=== PATIENT | male | born 1965 | race Caucasian/White ===

== ENCOUNTER 2019-07-01 08:43 | Emergency (ER) | payer BC ==
[2019-07-01 09:09] VITALS: BP 125/72
--- NOTE | 2019-07-01 09:21 | UC ---
Skin Complaint HPI - HPI Summary HPI Summary: Patient noticed a tick on his chest this morning. - History of Current Complaint Chief Complaint: UCSkin Time Seen by Provider: 07/01/19 09:15 Stated Complaint: TICK BITE Hx Obtained From: Patient Onset/Duration: Sudden Onset, Lasting Hours Skin Exposure Onset/Duration: Hours Ago Timing: Constant Onset Severity: Mild Current Severity: Mild Pain Intensity: 0 Location: Discrete Character: Redness Aggravating Factor(s): Nothing Alleviating Factor(s): Nothing Related History: Insect Bite/Sting - Allergy/Home Medications Allergies/Adverse Reactions: Allergies Allergy/AdvReac Type Severity Reaction Status Date / Time dog dander Allergy Eyes Verified 07/01/19 09:04 Itchy/Swollen/Red/Watery hay fever Allergy Runny Nose Uncoded 07/01/19 09:04 Home Medications: Home Medications Dm/PE/Acetaminophen/Doxylamine [Vicks Nyquil Severe Cold-Flu] 2 each PO QPM PRN 07/01/19 [History Confirmed 07/01/19] PMH/Surg Hx/FS Hx/Imm Hx Previously Healthy: Yes - Surgical History Surgical History: None - Family History Known Family History: Positive: Hypertension - Social History Alcohol Use: None Substance Use Type: None Smoking Status (MU): Never Smoked Tobacco Review of Systems All Other Systems Reviewed And Are Negative: Yes Skin: Positive: Other - tick bite Is Patient Immunocompromised?: No - is worried becasue he found out 3 days ago he has a low WBS count Physical Exam Triage Information Reviewed: Yes Appearance: Well-Appearing, Well-Nourished, Pain Distress Vital Signs: Initial Vital Signs Temp 98.4 F 07/01/19 09:06 Pulse 89 07/01/19 09:06 Resp 20 07/01/19 09:06 BP 125/72 07/01/19 09:06 Pulse Ox 97 07/01/19 09:06 Vital Signs Reviewed: Yes Eye Exam: Normal ENT Exam: Normal Dental Exam: Normal Neck exam: Normal Respiratory Exam: Normal Cardiovascular Exam: Normal Abdominal Exam: Normal Bowel Sounds: Positive: Present Musculoskeletal Exam: Normal Neurological Exam: Normal Psychological Exam: Normal Skin: Positive: Other - mild erythema were tick was removed Course/Dx - Course Course Of Treatment: hx obtained, exam performed, meds reviewed, given does of doxycyline. no further treatment - Differential Diagnoses - Skin Complaint Differential Diagnoses: Tick Born Illness - Diagnoses Provider Diagnosis: Tick bite Discharge ED - Sign-Out/Discharge Documenting (check all that apply): Patient Departure All imaging exams completed and their final reports reviewed: No Studies - Discharge Plan Condition: Stable Disposition: HOME Prescriptions: DOXYcycline CAP(*) [DOXYcycline 100MG CAP(*)] 200 mg PO ONCE #2 cap Patient Education Materials: Tick Bite (ED) Referrals: Nisa Calderón NP [Primary Care Provider] - Additional Instructions: 1. take the moedication with your next meal. 2. Follow up with your PCP - Billing Disposition and Condition Condition: STABLE Disposition: Home - Attestation Statements Provider Attestation: I was available for consult. This patient was seen by the JASEN. The patient was not presented to , seen by or examined by de -Gladis Layton MD
== END 2019-07-01 09:25 | disposition home or self-care (01) ==
LOC: UCCORT 08:43
DX: S20.369A Insect bite (nonvenomous) of unspecified front wall of thorax, initial encounter (principal); Z91.09 Other allergy status, other than to drugs and biological substances; W57.XXXA Bitten or stung by nonvenomous insect and other nonvenomous arthropods, initial encounter; Y92.9 Unspecified place or not applicable
CPT/HCPCS: 99202; G0463

== ENCOUNTER 2021-11-12 10:03 | Inpatient (IN) ==
[2021-11-12] MEDS ORDERED: NS 0.9% 1000 ml BAG 1,000 ML IV ONE (11:37)
[2021-11-12 12:58] LABS: Hematocrit 23 % (42-52); Hemoglobin 7.7 g/dL (14.0-18.0); Mean Corpuscular HGB Conc 33 g/dL (31-36); Mean Corpuscular Hemoglobin 35 pg (27-31); Mean Corpuscular Volume 104 fL (80-94); Red Blood Count 2.22 10^6 /uL (4.18-5.48); Red Cell Distribution Width 16 % (10-15); White Blood Count 5.2 10^3/uL (3.5-10.8)
[2021-11-12 13:02] LABS: Activated Partial Thrombo Time 31.6 seconds (26.0-38.0); INR 1.39 (0.86-1.15)
[2021-11-12 13:12] LABS: ALT 41 U/L (7-52); AST 29 U/L (13-39); Albumin 3.3 g/dL (3.2-5.2); Albumin/Globulin Ratio 1.7 (1-3); Alkaline Phosphatase 75 U/L (35-149); Anion Gap 8 mmol/L (2-11); Blood Urea Nitrogen 64 mg/dL (6-24); CO2 Carbon Dioxide 21 mmol/L (22-32); Chloride 109 mmol/L (101-111); Glucose 149 mg/dL (70-100); Sodium 138 mmol/L (135-145); Total Protein 5.3 g/dL (6.4-8.9); eGFR CKD-EPI 26.2 (>60)
[2021-11-12 13:20] LABS: Mean Platelet Volume 7.9 fL (7.4-10.4); Platelet Count 86 10^3/uL (150-450)
[2021-11-12 13:23] LABS: ABS Basophils 0.1 10^3/ul (0-0.2); ABS Lymphocytes 0.2 10^3/ul (1.0-4.8); ABS Monocytes 0.7 10^3/ul (0-0.8); ABS Neutrophils 4.3 10^3/ul (1.5-7.7); Anisocytosis 1+; Eosinophil % 0.3 %; Lymphocyte % 3.7 %; Troponin I 0.04 ng/mL (<0.03)
[2021-11-12] MEDS ORDERED: Piperacillin/Tazobactam VIAL 3.375 GM in NS 0.9% 100 ml BAG 100 ML IVPB ONE (13:35)
[2021-11-12] MEDS ORDERED: NS 0.9% 100 ml BAG 100 ML ONE (14:24)
[2021-11-12 15:58] LABS: Urine Appearance Clear; Urine Bilirubin Negative (Negative); Urine Blood 1+ (Negative); Urine Color Yellow; Urine Glucose Negative (Negative); Urine Ketones Negative (Negative); Urine Nitrite Negative (Negative); Urine Protein 2+(100 mg/dL) (Negative); Urine Specific Gravity 1.012 (1.002-1.030); Urine Urobilinogen Negative (Negative)
[2021-11-12 16:02] LABS: Urine Bacteria Absent (Absent); Urine Red Blood Cell Trace(0-2/hpf) (Absent); Urine White Blood Cell Trace(0-5/hpf) (Absent)
[2021-11-12] MEDS ORDERED: Butalb/Acetamin/Caff TAB 325-50-40MG PO PRN (17:30)
[2021-11-12] MEDS ORDERED: NS 0.9% 1000 ml BAG 1,000 ML IV SCH (17:30)
[2021-11-12] MEDS ORDERED: Hydrocortisone INJ 100 MG/2ML 2 ML VIAL IM SCH (18:00)
[2021-11-12] MEDS ORDERED: diPHENhydraMINE 25 mg TAB PO PRN (21:00)
[2021-11-12] MEDS ORDERED: cefTRIAXone VIAL 1,000 MG in NS 0.9% 50 ML 50 ML IVPB SCH (21:00)
[2021-11-12] MEDS: ISAVUCONAZONIUM 186 MG PO SCH (21:57)
[2021-11-12] MEDS: Azithromycin 500 mg/250 ml NS 500 MG/250 ML BAG IVPB SCH (22:39)
[2021-11-12] MEDS: Enoxaparin 80 MG/0.8 ML SYR SUBCUT SCH (22:39)
[2021-11-12] MEDS: Sodium Bicarb 650 mg (ANTACID) TAB PO SCH (22:41)
[2021-11-12] MEDS: Hydrocortisone INJ 100 MG/2ML 2 ML VIAL IM SCH (22:43)
[2021-11-12] MEDS ORDERED: BECLOMETHASONE PO SCH (23:00)
[2021-11-12] MEDS: Mometasone 220 MCG MDI INH SCH (23:17)
[2021-11-12] MEDS ORDERED: Ondansetron 4 mg VIAL 2 MG/ML 2 ml VIAL IV PRN (23:45)
[2021-11-13 05:00] LABS: ABS Lymphocytes 0.2 10^3/ul (1.0-4.8); ABS Monocytes 0.5 10^3/ul (0-0.8); ABS Neutrophils 3.9 10^3/ul (1.5-7.7); Eosinophil % 0.4 %; Hematocrit 21 % (42-52); Hemoglobin 6.9 g/dL (14.0-18.0); Lymphocyte % 3.6 %; Mean Corpuscular HGB Conc 33 g/dL (31-36); Mean Corpuscular Hemoglobin 35 pg (27-31); Mean Corpuscular Volume 104 fL (80-94); Mean Platelet Volume 7.9 fL (7.4-10.4); Platelet Count 65 10^3/uL (150-450); Red Blood Count 1.99 10^6 /uL (4.18-5.48); Red Cell Distribution Width 16 % (10-15); White Blood Count 4.6 10^3/uL (3.5-10.8)
[2021-11-13 05:08] LABS: Albumin 2.9 g/dL (3.2-5.2); Albumin/Globulin Ratio 1.5 (1-3); Calcium 8.5 mg/dL (8.6-10.3); Globulin 1.9 g/dL (2-4); Total Bilirubin 0.4 mg/dL (0.2-1.0); Total Protein 4.8 g/dL (6.4-8.9); eGFR CKD-EPI 24.5 (>60)
[2021-11-13 05:12] LABS: Potassium 5.1 mmol/L (3.5-5.0)
[2021-11-13] MEDS ORDERED: Furosemide 20 mg/2 ml IV VIAL IV ONE (06:00)
[2021-11-13] MEDS: Hydrocortisone INJ 100 MG/2ML 2 ML VIAL IM SCH (06:20)
[2021-11-13] MEDS: SPIRIVA Respimat (tiotropium) 2.5 mcg/inh Inhaler INH SCH (07:59)
[2021-11-13] MEDS: Cholecalciferol (VIT D3) 1,000 unit TAB PO SCH (09:00)
[2021-11-13] MEDS: Sodium Bicarb 650 mg (ANTACID) TAB PO SCH ×3 (09:02→21:35)
[2021-11-13] MEDS ORDERED: Dextrose 50% Syringe 50 ml 25 GM/50 ML SYRINGE IV PUSH PRN (09:58)
[2021-11-13] MEDS: [UNRECOGNIZED DRUG - OTHER] PO SCH (10:01)
[2021-11-13] MEDS: methylPREDNISolone SOD 40 mg/ml 1 ml VIAL IV SCH ×2 (10:01→21:37)
[2021-11-13] MEDS: Piperacillin/Tazobac ADVAN 3.375 GM in NS 0.9% 100 ml BAG 100 ML IV SCH ×2 (11:21→18:06)
[2021-11-13] MEDS: Warfarin DAILY REMINDER **NOTE FOLLOW UP SCH (16:38)
[2021-11-13] MEDS: Mometasone 220 MCG MDI INH SCH (19:36)
[2021-11-13] MEDS: Enoxaparin 80 MG/0.8 ML SYR SUBCUT SCH (21:40)
[2021-11-13] MEDS: ISAVUCONAZONIUM 186 MG PO SCH (21:40)
[2021-11-13] MEDS: Azithromycin 500 mg/250 ml NS 500 MG/250 ML BAG IVPB SCH (22:32)
[2021-11-14] MEDS: Piperacillin/Tazobac ADVAN 3.375 GM in NS 0.9% 100 ml BAG 100 ML IV SCH ×3 (03:36→18:01)
[2021-11-14 07:00] LABS: Albumin 3.1 g/dL (3.2-5.2); Albumin/Globulin Ratio 1.3 (1-3); Globulin 2.3 g/dL (2-4); INR 1.44 (0.86-1.15); Total Bilirubin 0.4 mg/dL (0.2-1.0); Total Protein 5.4 g/dL (6.4-8.9)
[2021-11-14 07:02] LABS: Potassium 5.5 mmol/L (3.5-5.0)
[2021-11-14 07:17] LABS: Hematocrit 20 % (42-52); Hemoglobin 6.8 g/dL (14.0-18.0); Mean Corpuscular HGB Conc 34 g/dL (31-36); Mean Corpuscular Hemoglobin 35 pg (27-31); Mean Corpuscular Volume 104 fL (80-94); Mean Platelet Volume 8.4 fL (7.4-10.4); Platelet Count 73 10^3/uL (150-450); Red Blood Count 1.95 10^6 /uL (4.18-5.48); Red Cell Distribution Width 16 % (10-15); White Blood Count 5.1 10^3/uL (3.5-10.8)
[2021-11-14 08:10] LABS: ABS Lymphocytes 0.1 10^3/ul (1.0-4.8); ABS Monocytes 0.3 10^3/ul (0-0.8); ABS Neutrophils 4.7 10^3/ul (1.5-7.7); Lymphocyte % 1.4 %
[2021-11-14] MEDS: Sodium Bicarb 650 mg (ANTACID) TAB PO SCH ×3 (08:40→20:55)
[2021-11-14] MEDS: Cholecalciferol (VIT D3) 1,000 unit TAB PO SCH (08:41)
[2021-11-14] MEDS: SPIRIVA Respimat (tiotropium) 2.5 mcg/inh Inhaler INH SCH (08:58)
[2021-11-14] MEDS: methylPREDNISolone SOD 40 mg/ml 1 ml VIAL IV SCH ×2 (10:17→21:03)
[2021-11-14] MEDS: [UNRECOGNIZED DRUG - OTHER] PO SCH (10:59)
[2021-11-14] MEDS ORDERED: NS 0.9% 1000 ml BAG 1,000 ML IV SCH (13:30)
[2021-11-14] MEDS: NS 0.9% 1000 ml BAG 1,000 ML IV SCH (16:54)
[2021-11-14] MEDS: Warfarin DAILY REMINDER **NOTE FOLLOW UP SCH (16:59)
[2021-11-14] MEDS: [UNRECOGNIZED DRUG - OTHER] PO SCH (17:59)
[2021-11-14] MEDS: BECLOMETHASONE PO SCH ×2 (18:00→20:56)
[2021-11-14] MEDS: PROTEIN PO SCH ×2 (18:00→20:57)
[2021-11-14] MEDS: Mometasone 220 MCG MDI INH SCH (19:17)
[2021-11-14] MEDS: Enoxaparin 80 MG/0.8 ML SYR SUBCUT SCH (20:56)
[2021-11-14] MEDS: ISAVUCONAZONIUM 186 MG PO SCH (20:57)
[2021-11-14] MEDS: Azithromycin 500 mg/250 ml NS 500 MG/250 ML BAG IVPB SCH (22:57)
[2021-11-15] MEDS: Piperacillin/Tazobac ADVAN 3.375 GM in NS 0.9% 100 ml BAG 100 ML IV SCH ×3 (02:32→17:03)
[2021-11-15] MEDS: NS 0.9% 1000 ml BAG 1,000 ML IV SCH (05:49)
[2021-11-15 06:47] LABS: ABS Lymphocytes 0.1 10^3/ul (1.0-4.8); ABS Monocytes 0.2 10^3/ul (0-0.8); ABS Neutrophils 3.9 10^3/ul (1.5-7.7); Eosinophil % 0.1 %; Hematocrit 20 % (42-52); Hemoglobin 6.7 g/dL (14.0-18.0); Lymphocyte % 1.7 %; Mean Corpuscular HGB Conc 34 g/dL (31-36); Mean Corpuscular Hemoglobin 35 pg (27-31); Mean Corpuscular Volume 104 fL (80-94); Mean Platelet Volume 8.1 fL (7.4-10.4); Nucleated Red Blood Cells % 0.1; Platelet Count 72 10^3/uL (150-450); Red Blood Count 1.91 10^6 /uL (4.18-5.48); Red Cell Distribution Width 16 % (10-15); White Blood Count 4.2 10^3/uL (3.5-10.8)
[2021-11-15 06:48] LABS: Albumin/Globulin Ratio 1.4 (1-3); Calcium 8.4 mg/dL (8.6-10.3); Globulin 2.1 g/dL (2-4); Total Bilirubin 0.4 mg/dL (0.2-1.0); Total Protein 5.1 g/dL (6.4-8.9)
[2021-11-15 06:49] LABS: Potassium 5.3 mmol/L (3.5-5.0)
[2021-11-15 07:01] LABS: INR 1.62 (0.86-1.15)
[2021-11-15] MEDS: SPIRIVA Respimat (tiotropium) 2.5 mcg/inh Inhaler INH SCH (08:03)
[2021-11-15] MEDS: Cholecalciferol (VIT D3) 1,000 unit TAB PO SCH (08:43)
[2021-11-15] MEDS: Sodium Bicarb 650 mg (ANTACID) TAB PO SCH ×3 (08:43→21:28)
[2021-11-15] MEDS: BECLOMETHASONE PO SCH ×4 (08:45→21:46)
[2021-11-15] MEDS: [UNRECOGNIZED DRUG - OTHER] PO SCH (08:45)
[2021-11-15] MEDS: PROTEIN PO SCH ×4 (08:45→21:47)
[2021-11-15] MEDS: methylPREDNISolone SOD 40 mg/ml 1 ml VIAL IV SCH (10:28)
[2021-11-15] MEDS: Warfarin DAILY REMINDER **NOTE FOLLOW UP SCH (17:30)
[2021-11-15] MEDS: Mometasone 220 MCG MDI INH SCH (19:49)
[2021-11-15] MEDS: Enoxaparin 80 MG/0.8 ML SYR SUBCUT SCH (21:28)
[2021-11-15] MEDS: ISAVUCONAZONIUM 186 MG PO SCH (21:46)
[2021-11-15] MEDS ORDERED: methylPREDNISolone SOD 40 mg/ml 1 ml VIAL IV SCH (22:00)
[2021-11-15] MEDS: Azithromycin 500 mg/250 ml NS 500 MG/250 ML BAG IVPB SCH (22:11)
[2021-11-16] MEDS: Piperacillin/Tazobac ADVAN 3.375 GM in NS 0.9% 100 ml BAG 100 ML IV SCH ×3 (01:52→18:11)
[2021-11-16 06:04] LABS: Hematocrit 20 % (42-52); Hemoglobin 6.8 g/dL (14.0-18.0); INR 2.6 (0.86-1.15); Mean Corpuscular HGB Conc 34 g/dL (31-36); Mean Corpuscular Hemoglobin 35 pg (27-31); Mean Corpuscular Volume 104 fL (80-94); Platelet Count 80 10^3/uL (150-450); Red Blood Count 1.95 10^6 /uL (4.18-5.48); Red Cell Distribution Width 16 % (10-15); White Blood Count 4.2 10^3/uL (3.5-10.8)
[2021-11-16 06:15] LABS: Albumin 3.1 g/dL (3.2-5.2); Albumin/Globulin Ratio 1.5 (1-3); Calcium 8.3 mg/dL (8.6-10.3); Globulin 2.1 g/dL (2-4); Total Bilirubin 0.4 mg/dL (0.2-1.0); Total Protein 5.2 g/dL (6.4-8.9); eGFR CKD-EPI 16.7 (>60)
[2021-11-16 06:16] LABS: Potassium 5.2 mmol/L (3.5-5.0)
[2021-11-16 06:49] LABS: RBC Morphology Normal (Normal)
[2021-11-16 07:28] LABS: ABS Lymphocytes 0.1 10^3/ul (1.0-4.8); ABS Monocytes 0.3 10^3/ul (0-0.8); ABS Neutrophils 3.9 10^3/ul (1.5-7.7); Lymphocyte % 1.7 %; Nucleated Red Blood Cells % 0.3
[2021-11-16] MEDS: SPIRIVA Respimat (tiotropium) 2.5 mcg/inh Inhaler INH SCH (07:54)
[2021-11-16] MEDS: Sodium Bicarb 650 mg (ANTACID) TAB PO SCH ×3 (09:25→21:01)
[2021-11-16] MEDS: [UNRECOGNIZED DRUG - OTHER] PO SCH (09:26)
[2021-11-16] MEDS: Cholecalciferol (VIT D3) 1,000 unit TAB PO SCH (09:26)
[2021-11-16] MEDS: PROTEIN PO SCH ×4 (09:28→21:11)
[2021-11-16] MEDS: BECLOMETHASONE PO SCH ×4 (09:28→21:10)
[2021-11-16 11:11] LABS: Immunoglobulin A 3 mg/dL (61 - 356); Immunoglobulin G 22 mg/dL (767 - 1590); Immunoglobulin M <5 mg/dL (37 - 286)
[2021-11-16] MEDS: Warfarin DAILY REMINDER **NOTE FOLLOW UP SCH (18:15)
[2021-11-16] MEDS: Mometasone 220 MCG MDI INH SCH (19:36)
[2021-11-16] MEDS: ISAVUCONAZONIUM 186 MG PO SCH (21:11)
[2021-11-16] MEDS: Azithromycin 500 mg/250 ml NS 500 MG/250 ML BAG IVPB SCH (22:20)
[2021-11-17] MEDS: Piperacillin/Tazobac ADVAN 3.375 GM in NS 0.9% 100 ml BAG 100 ML IV SCH (01:43)
[2021-11-17 04:54] LABS: Hematocrit 21 % (42-52); INR 3.28 (0.86-1.15); Mean Corpuscular HGB Conc 33 g/dL (31-36); Mean Corpuscular Hemoglobin 34 pg (27-31); Mean Corpuscular Volume 104 fL (80-94); Mean Platelet Volume 7.3 fL (7.4-10.4); Platelet Count 86 10^3/uL (150-450); Red Blood Count 2.04 10^6 /uL (4.18-5.48); Red Cell Distribution Width 16 % (10-15); White Blood Count 3.3 10^3/uL (3.5-10.8)
[2021-11-17 05:05] LABS: Albumin 3.1 g/dL (3.2-5.2); Albumin/Globulin Ratio 1.6 (1-3); Calcium 8.3 mg/dL (8.6-10.3); Globulin 1.9 g/dL (2-4); Potassium 4.8 mmol/L (3.5-5.0); Total Bilirubin 0.4 mg/dL (0.2-1.0); eGFR CKD-EPI 20.2 (>60)
[2021-11-17 05:13] LABS: ABS Lymphocytes 0.1 10^3/ul (1.0-4.8); ABS Monocytes 0.4 10^3/ul (0-0.8); ABS Neutrophils 2.7 10^3/ul (1.5-7.7); Eosinophil % 1.4 %; Nucleated Red Blood Cells % 0.5
[2021-11-17 07:41] VITALS: BP 147/79
[2021-11-17] MEDS: SPIRIVA Respimat (tiotropium) 2.5 mcg/inh Inhaler INH SCH (07:48)
[2021-11-17] MEDS: Cholecalciferol (VIT D3) 1,000 unit TAB PO SCH (08:54)
[2021-11-17] MEDS: Sodium Bicarb 650 mg (ANTACID) TAB PO SCH (08:58)
[2021-11-17] MEDS: PROTEIN PO SCH (09:04)
[2021-11-17] MEDS: [UNRECOGNIZED DRUG - OTHER] PO SCH (09:04)
[2021-11-17] MEDS: BECLOMETHASONE PO SCH (09:04)
== END 2021-11-17 11:25 | disposition home or self-care (01) | DRG 720 ==
LOC: ED 10:03 → EDHOLD 17:42 → MED 19:56
PROVIDERS: ADMIT Internal Medicine Medical Oncology; ATTEND Internal Medicine Medical Oncology

== ENCOUNTER 2022-02-12 05:04 | Inpatient (IN) ==
[2022-02-12] MEDS ORDERED: Azithromycin 500 mg/250 ml NS 500 MG/250 ML BAG IVPB ONE (07:20)
[2022-02-12] MEDS ORDERED: Cefepime 2 GM in Dextrose 2 GM/50 ML BAG IV ONE (07:20)
[2022-02-12] MEDS ORDERED: Lactated Ringers 1000 ml BAG 1,000 ML IV ONE (07:21)
[2022-02-12 07:55] LABS: ABS Lymphocytes 0.3 10^3/ul (1.0-4.8); ABS Monocytes 0.5 10^3/ul (0-0.8); ABS Neutrophils 2.7 10^3/ul (1.5-7.7); Eosinophil % 0.4 %; Hematocrit 22 % (42-52); Hemoglobin 7.3 g/dL (14.0-18.0); Mean Corpuscular HGB Conc 34 g/dL (31-36); Mean Corpuscular Hemoglobin 35 pg (27-31); Mean Corpuscular Volume 103 fL (80-94); Mean Platelet Volume 7.2 fL (7.4-10.4); Nucleated Red Blood Cells % 0.1; Platelet Count 69 10^3/uL (150-450); Red Cell Distribution Width 18 % (10-15); White Blood Count 3.6 10^3/uL (3.5-10.8)
[2022-02-12] MEDS ORDERED: Lactated Ringers 1000 ml BAG 1,000 ML IV SCH (08:00)
[2022-02-12 08:11] LABS: Albumin 3.1 g/dL (3.2-5.2); Albumin/Globulin Ratio 2.2 (1-3); C Reactive Protein 82.86 mg/L (<8.01); Calcium 8.4 mg/dL (8.6-10.3); Globulin 1.4 g/dL (2-4); Total Bilirubin 0.5 mg/dL (0.2-1.0); Total Protein 4.5 g/dL (6.4-8.9); eGFR CKD-EPI 23.4 (>60)
[2022-02-12 08:12] LABS: Potassium 5.3 mmol/L (3.5-5.0)
[2022-02-12] MEDS ORDERED: NS 0.9% 1000 ml BAG 1,000 ML IV SCH ×2 (09:30→10:00)
[2022-02-12] MEDS ORDERED: Ondansetron ODT 4 mg TAB 4 MG TAB PO PRN (09:34)
[2022-02-12] MEDS ORDERED: Rizatriptan ODT 10 mg TAB (NF) PO PRN (09:34)
[2022-02-12] MEDS: [UNRECOGNIZED DRUG - OTHER] PO SCH (12:03)
[2022-02-12] MEDS: ISAVUCONAZONIUM SULFATE 186 MG PO SCH (12:04)
[2022-02-12] MEDS: Cholecalciferol (VIT D3) 1,000 unit TAB PO SCH (12:07)
[2022-02-12] MEDS: Hydrocortisone INJ 100 MG/2ML 2 ML VIAL IV SCH ×2 (12:08→18:27)
[2022-02-12] MEDS: Labetalol 300 mg TAB PO SCH ×3 (12:08→18:44)
[2022-02-12] MEDS: SPIRIVA Respimat (tiotropium) 2.5 mcg/inh Inhaler INH SCH (12:09)
[2022-02-12] MEDS ORDERED: Furosemide 20 mg/2 ml IV VIAL IV SLOW PU ONE (12:23)
[2022-02-12] MEDS ORDERED: Vancomycin 1,000 MG in NS 0.9% 250 ml 250 ML IVPB ONE (13:31)
[2022-02-12] MEDS ORDERED: Vancomycin 1,500 MG in NS 0.9% 250 ml 250 ML IVPB ONE (14:00)
[2022-02-12] MEDS ORDERED: Zosyn per Pharmacy NOTE FOLLOW UP SCH (14:00)
[2022-02-12] MEDS ORDERED: Piperacillin/Tazobac ADVAN 3.375 GM in NS 0.9% 100 ml BAG 100 ML IV ONE (14:00)
[2022-02-12] MEDS ORDERED: Vancomycin per Pharmacy 1 EA NOTE FOLLOW UP SCH (14:00)
[2022-02-12] MEDS ORDERED: cefTRIAXone 1 gm/50 mL D5W 1 GM/50 ML BAG IV SCH (14:00)
[2022-02-12 14:59] LABS: Urine Appearance Clear; Urine Bilirubin Negative (Negative); Urine Blood 1+ (Negative); Urine Color Straw; Urine Glucose Negative (Negative); Urine Ketones Negative (Negative); Urine Nitrite Negative (Negative); Urine Protein 1+(30 mg/dL) (Negative); Urine Urobilinogen Negative (Negative)
[2022-02-12 15:40] LABS: Urine Bacteria Absent (Absent); Urine Red Blood Cell Trace(0-2/hpf) (Absent); Urine White Blood Cell Trace(0-5/hpf) (Absent)
[2022-02-12] MEDS ORDERED: Norepinephrine 16MCG/ML BAGD5W 4,000 MCG/250 ML BAG IV ONE (16:12)
[2022-02-12] MEDS: ZOSYN 3.375 GM Q8H per EXTENDED INFUSION IV SCH (18:27)
[2022-02-12] MEDS: Mometasone 220 MCG MDI INH SCH (19:54)
[2022-02-12 22:45] LABS: Calcium 7.9 mg/dL (8.6-10.3); Magnesium 1.9 mg/dL (1.9-2.7); Potassium 5.6 mmol/L (3.5-5.0)
[2022-02-12 22:50] LABS: Phosphorus 3.6 mg/dL (2.5-5.0); eGFR CKD-EPI 21.6 (>60)
[2022-02-12] MEDS: SODIUM ZIRCONIUM CYCLOSILICATE 10 GM PACKET PO SCH (23:05)
[2022-02-12] MEDS ORDERED: Dextrose 50% Syringe 50 ml 25 GM/50 ML SYRINGE IV PUSH ONE (23:14)
[2022-02-12] MEDS ORDERED: Acetaminophen IV 1 GM/100ML 100 ML IV ONE (23:15)
[2022-02-13] MEDS: Hydrocortisone INJ 100 MG/2ML 2 ML VIAL IV SCH ×3 (01:58→18:05)
[2022-02-13] MEDS: Labetalol 300 mg TAB PO SCH ×3 (01:59→18:06)
[2022-02-13] MEDS: ZOSYN 3.375 GM Q8H per EXTENDED INFUSION IV SCH ×3 (01:59→18:05)
[2022-02-13 04:22] LABS: ABS Neutrophils 3.7 10^3/ul (1.5-7.7); Eosinophil % 1.2 %; Hematocrit 21 % (42-52); Hemoglobin 7.1 g/dL (14.0-18.0); Lymphocyte % 1.1 %; Mean Corpuscular HGB Conc 33 g/dL (31-36); Mean Corpuscular Hemoglobin 34 pg (27-31); Mean Corpuscular Volume 103 fL (80-94); Mean Platelet Volume 7.1 fL (7.4-10.4); Nucleated Red Blood Cells % 0.1; Platelet Count 59 10^3/uL (150-450); Red Blood Count 2.07 10^6 /uL (4.18-5.48); Red Cell Distribution Width 18 % (10-15); White Blood Count 3.8 10^3/uL (3.5-10.8)
[2022-02-13 04:44] LABS: Calcium 7.9 mg/dL (8.6-10.3); eGFR CKD-EPI 20.7 (>60)
[2022-02-13] MEDS ORDERED: Vancomycin Random Level NOTE FOLLOW UP ONE (06:00)
[2022-02-13] MEDS: SPIRIVA Respimat (tiotropium) 2.5 mcg/inh Inhaler INH SCH (07:58)
[2022-02-13] MEDS: [UNRECOGNIZED DRUG - OTHER] PO SCH (08:48)
[2022-02-13] MEDS: Cholecalciferol (VIT D3) 1,000 unit TAB PO SCH (08:48)
[2022-02-13] MEDS: ISAVUCONAZONIUM SULFATE 186 MG PO SCH (08:51)
[2022-02-13] MEDS ORDERED: Vancomycin 1,250 MG in NS 0.9% 250 ml 250 ML IVPB ONE (10:00)
[2022-02-13] MEDS: SODIUM ZIRCONIUM CYCLOSILICATE 10 GM PACKET PO SCH ×4 (11:10→20:30)
[2022-02-13] MEDS: Mometasone 220 MCG MDI INH SCH (21:21)
[2022-02-14] MEDS: ZOSYN 3.375 GM Q8H per EXTENDED INFUSION IV SCH ×3 (02:05→18:37)
[2022-02-14] MEDS: Labetalol 300 mg TAB PO SCH ×3 (02:06→18:29)
[2022-02-14] MEDS: Hydrocortisone INJ 100 MG/2ML 2 ML VIAL IV SCH ×2 (02:08→08:48)
[2022-02-14 05:45] LABS: Hematocrit 20 % (42-52); Hemoglobin 6.5 g/dL (14.0-18.0); Mean Corpuscular HGB Conc 33 g/dL (31-36); Mean Corpuscular Hemoglobin 34 pg (27-31); Mean Corpuscular Volume 103 fL (80-94); Mean Platelet Volume 7.7 fL (7.4-10.4); Platelet Count 65 10^3/uL (150-450); Red Blood Count 1.92 10^6 /uL (4.18-5.48); Red Cell Distribution Width 17 % (10-15); White Blood Count 3.1 10^3/uL (3.5-10.8)
[2022-02-14] MEDS ORDERED: Vancomycin Random Level NOTE FOLLOW UP ONE (06:00)
[2022-02-14 06:10] LABS: Vancomycin Random 18.1 mcg/mL; eGFR CKD-EPI 19.4 (>60)
[2022-02-14 06:19] LABS: ABS Monocytes 0.1 10^3/ul (0-0.8); ABS Neutrophils 2.9 10^3/ul (1.5-7.7); Eosinophil % 1.2 %; Lymphocyte % 1.6 %
[2022-02-14 06:26] LABS: Calcium 7.9 mg/dL (8.6-10.3)
[2022-02-14] MEDS: SODIUM ZIRCONIUM CYCLOSILICATE 10 GM PACKET PO SCH ×2 (07:36→13:44)
[2022-02-14] MEDS: ISAVUCONAZONIUM SULFATE 186 MG PO SCH (08:47)
[2022-02-14] MEDS: Cholecalciferol (VIT D3) 1,000 unit TAB PO SCH (08:47)
[2022-02-14] MEDS: [UNRECOGNIZED DRUG - OTHER] PO SCH (08:48)
[2022-02-14] MEDS ORDERED: Bumetanide IV 0.25 MG/ML 4 ml VIAL (1 mg) SLOW PUSH ONE (09:11)
[2022-02-14] MEDS: SPIRIVA Respimat (tiotropium) 2.5 mcg/inh Inhaler INH SCH (18:34)
[2022-02-14] MEDS: Mometasone 220 MCG MDI INH SCH (18:38)
[2022-02-15] MEDS: Labetalol 300 mg TAB PO SCH ×3 (01:32→17:37)
[2022-02-15] MEDS: ZOSYN 3.375 GM Q8H per EXTENDED INFUSION IV SCH (01:32)
[2022-02-15 06:05] LABS: Hematocrit 25 % (42-52); Hemoglobin 8.3 g/dL (14.0-18.0); Mean Corpuscular HGB Conc 33 g/dL (31-36); Mean Corpuscular Hemoglobin 33 pg (27-31); Mean Corpuscular Volume 97 fL (80-94); Mean Platelet Volume 7.6 fL (7.4-10.4); Platelet Count 71 10^3/uL (150-450); Red Blood Count 2.57 10^6 /uL (4.18-5.48); Red Cell Distribution Width 19 % (10-15); White Blood Count 3.1 10^3/uL (3.5-10.8)
[2022-02-15 06:29] LABS: Calcium 7.9 mg/dL (8.6-10.3); Potassium 3.6 mmol/L (3.5-5.0); eGFR CKD-EPI 18.4 (>60)
[2022-02-15 06:31] LABS: ABS Lymphocytes 0.1 10^3/ul (1.0-4.8); ABS Monocytes 0.1 10^3/ul (0-0.8); ABS Neutrophils 2.9 10^3/ul (1.5-7.7); Eosinophil % 0.4 %; Lymphocyte % 2.4 %
[2022-02-15] MEDS: [UNRECOGNIZED DRUG - OTHER] PO SCH (07:28)
[2022-02-15] MEDS: Cholecalciferol (VIT D3) 1,000 unit TAB PO SCH (07:32)
[2022-02-15] MEDS: SPIRIVA Respimat (tiotropium) 2.5 mcg/inh Inhaler INH SCH (08:24)
[2022-02-15] MEDS: ZOSYN 3.375 GM Q12H per EXTENDED INFUSION IV SCH (14:29)
[2022-02-15] MEDS: ISAVUCONAZONIUM SULFATE 186 MG PO SCH (17:37)
[2022-02-15] MEDS ORDERED: ORENCIA 125 MG/ML SUBCUT ONE (20:00)
[2022-02-15] MEDS: Mometasone 220 MCG MDI INH SCH (21:32)
[2022-02-16] MEDS: Labetalol 300 mg TAB PO SCH ×3 (02:39→18:10)
[2022-02-16] MEDS: ZOSYN 3.375 GM Q12H per EXTENDED INFUSION IV SCH ×2 (02:40→13:37)
[2022-02-16 08:16] LABS: ABS Eosinophils 0.1 10^3/ul (0-0.6); ABS Lymphocytes 0.1 10^3/ul (1.0-4.8); ABS Monocytes 0.4 10^3/ul (0-0.8); Hematocrit 24 % (42-52); Hemoglobin 7.9 g/dL (14.0-18.0); Lymphocyte % 4.9 %; Mean Corpuscular HGB Conc 34 g/dL (31-36); Mean Corpuscular Hemoglobin 33 pg (27-31); Mean Corpuscular Volume 99 fL (80-94); Mean Platelet Volume 7.2 fL (7.4-10.4); Nucleated Red Blood Cells % 0.2; Platelet Count 70 10^3/uL (150-450); Red Blood Count 2.37 10^6 /uL (4.18-5.48); Red Cell Distribution Width 19 % (10-15); White Blood Count 2.7 10^3/uL (3.5-10.8)
[2022-02-16] MEDS: SPIRIVA Respimat (tiotropium) 2.5 mcg/inh Inhaler INH SCH (08:36)
[2022-02-16 08:54] LABS: Albumin 3.1 g/dL (3.2-5.2); Albumin/Globulin Ratio 2.2 (1-3); Calcium 8.1 mg/dL (8.6-10.3); Globulin 1.4 g/dL (2-4); Potassium 3.5 mmol/L (3.5-5.0); Total Bilirubin 0.6 mg/dL (0.2-1.0); Total Protein 4.5 g/dL (6.4-8.9); eGFR CKD-EPI 19.7 (>60)
[2022-02-16 08:59] LABS: RBC Morphology Normal (Normal)
[2022-02-16] MEDS: [UNRECOGNIZED DRUG - OTHER] PO SCH (09:03)
[2022-02-16] MEDS: ISAVUCONAZONIUM SULFATE 186 MG PO SCH (09:13)
[2022-02-16] MEDS: Cholecalciferol (VIT D3) 1,000 unit TAB PO SCH (09:21)
[2022-02-16] MEDS: Mometasone 220 MCG MDI INH SCH ×2 (21:23→21:40)
[2022-02-17] MEDS: Labetalol 300 mg TAB PO SCH ×2 (01:51→08:45)
[2022-02-17] MEDS: ZOSYN 3.375 GM Q12H per EXTENDED INFUSION IV SCH (01:52)
[2022-02-17] MEDS: SPIRIVA Respimat (tiotropium) 2.5 mcg/inh Inhaler INH SCH (08:12)
[2022-02-17] MEDS: Cholecalciferol (VIT D3) 1,000 unit TAB PO SCH (08:38)
[2022-02-17] MEDS: [UNRECOGNIZED DRUG - OTHER] PO SCH (08:44)
[2022-02-17] MEDS: ISAVUCONAZONIUM SULFATE 186 MG PO SCH (08:46)
[2022-02-17 11:37] VITALS: BP 132/66
[2022-02-17 13:32] LABS: Albumin 3.1 g/dL (3.2-5.2); Albumin/Globulin Ratio 2.1 (1-3); Calcium 8.1 mg/dL (8.6-10.3); Globulin 1.5 g/dL (2-4); Potassium 3.8 mmol/L (3.5-5.0); Total Bilirubin 0.5 mg/dL (0.2-1.0); Total Protein 4.6 g/dL (6.4-8.9); eGFR CKD-EPI 22.7 (>60)
[2022-02-17 19:22] LABS: Immunoglobulin A 3 mg/dL (61 - 356); Immunoglobulin G 26 mg/dL (767 - 1590); Immunoglobulin M 21 mg/dL (37 - 286)
== END 2022-02-17 15:00 | disposition home or self-care (01) | DRG 139 ==
LOC: ED 05:04 → EDHOLD 09:29 → MEDTELE 13:11 → ICU 13:53 → MED 02-15 11:34
PROVIDERS: ADMIT Internal Medicine Hematology & Oncology; ATTEND Internal Medicine Hematology & Oncology

== ENCOUNTER 2022-03-19 03:32 | Inpatient (IN) ==
[2022-03-19] MEDS ORDERED: Cefepime 1 GM in Dextrose 1 GM/50 ML BAG IV ONE (04:45)
[2022-03-19] MEDS ORDERED: Vancomycin 1,000 MG in NS 0.9% 250 ml 250 ML IVPB ONE (04:46)
[2022-03-19 04:52] LABS: Hematocrit 22 % (42-52); Hemoglobin 7.5 g/dL (14.0-18.0); Mean Corpuscular HGB Conc 34 g/dL (31-36); Mean Corpuscular Hemoglobin 32 pg (27-31); Mean Corpuscular Volume 95 fL (80-94); Mean Platelet Volume 6.8 fL (7.4-10.4); Platelet Count 101 10^3/uL (150-450); Red Blood Count 2.34 10^6 /uL (4.18-5.48); Red Cell Distribution Width 18 % (10-15); White Blood Count 5.2 10^3/uL (3.5-10.8)
[2022-03-19 05:26] LABS: ALT 10 U/L (7-52); AST 10 U/L (13-39); Albumin 3.1 g/dL (3.2-5.2); Albumin/Globulin Ratio 1.9 (1-3); Alkaline Phosphatase 57 U/L (35-149); Blood Urea Nitrogen 65 mg/dL (6-24); CO2 Carbon Dioxide 24 mmol/L (22-32); Calcium 8.4 mg/dL (8.6-10.3); Chloride 102 mmol/L (101-111); Globulin 1.6 g/dL (2-4); Glucose 123 mg/dL (70-100); Sodium 133 mmol/L (135-145); Total Protein 4.7 g/dL (6.4-8.9); eGFR CKD-EPI 16.5 (>60)
[2022-03-19 05:30] LABS: Anion Gap 7 mmol/L (2-11); Potassium 5.2 mmol/L (3.5-5.0)
[2022-03-19] MEDS ORDERED: Ondansetron 4 mg VIAL 2 MG/ML 2 ml VIAL IV PRN (06:16)
[2022-03-19] MEDS ORDERED: Vancomycin 1,000 MG BAG/ADDV ONE (06:18)
[2022-03-19] MEDS ORDERED: Dextrose 50% Syringe 50 ml 25 GM/50 ML SYRINGE IV PUSH PRN (06:28)
[2022-03-19 06:31] LABS: Basophilic Stippling 1+; RBC Morphology Normal (Normal)
[2022-03-19 06:32] LABS: ABS Basophils 0.1 10^3/ul (0-0.2); ABS Lymphocytes 0.3 10^3/ul (1.0-4.8); ABS Monocytes 1.3 10^3/ul (0-0.8); ABS Neutrophils 3.6 10^3/ul (1.5-7.7); Eosinophil % 0.4 %; Nucleated Red Blood Cells % 0.1
[2022-03-19] MEDS ORDERED: Sodium Polystyrene ORAL.SUSP 15 GM/60 ML BTL PO ONE (06:40)
[2022-03-19 06:44] LABS: Folate > 20.00 ng/mL (5.90-24.80)
[2022-03-19 06:45] LABS: Vitamin B12 425 pg/mL (180-914)
[2022-03-19 08:51] LABS: Urine Appearance Clear; Urine Bilirubin Negative (Negative); Urine Blood Negative (Negative); Urine Color Yellow; Urine Glucose Negative (Negative); Urine Ketones Negative (Negative); Urine Nitrite Negative (Negative); Urine Protein 2+(100 mg/dL) (Negative); Urine Specific Gravity 1.011 (1.002-1.030); Urine Urobilinogen Negative (Negative)
[2022-03-19] MEDS ORDERED: NON FORMULARY RESPIRATORY MED 1 DOSE MISC PO SCH (09:00)
[2022-03-19 09:07] LABS: Urine Bacteria Absent (Absent); Urine Red Blood Cell Trace(0-2/hpf) (Absent); Urine White Blood Cell Trace(0-5/hpf) (Absent)
[2022-03-19] MEDS: Labetalol 300 mg TAB PO SCH ×3 (10:08→23:24)
[2022-03-19] MEDS: SPIRIVA Respimat (tiotropium) 2.5 mcg/inh Inhaler INH SCH (10:10)
[2022-03-19] MEDS: NS 0.9% 1000 ml BAG 1,000 ML IV SCH (14:47)
[2022-03-19 15:52] LABS: eGFR CKD-EPI 16.8 (>60)
[2022-03-19 15:57] LABS: Potassium 5.2 mmol/L (3.5-5.0)
[2022-03-19] MEDS: [UNRECOGNIZED DRUG - OTHER] PO SCH (23:25)
[2022-03-20 05:06] LABS: Hematocrit 24 % (42-52); Hemoglobin 7.8 g/dL (14.0-18.0); Mean Corpuscular HGB Conc 33 g/dL (31-36); Mean Corpuscular Hemoglobin 32 pg (27-31); Mean Corpuscular Volume 96 fL (80-94); Mean Platelet Volume 6.6 fL (7.4-10.4); Platelet Count 99 10^3/uL (150-450); Red Blood Count 2.45 10^6 /uL (4.18-5.48); Red Cell Distribution Width 18 % (10-15); White Blood Count 3.9 10^3/uL (3.5-10.8)
[2022-03-20 05:24] LABS: ABS Eosinophils 0.1 10^3/ul (0-0.6); ABS Lymphocytes 0.3 10^3/ul (1.0-4.8); ABS Monocytes 0.8 10^3/ul (0-0.8); ABS Neutrophils 2.7 10^3/ul (1.5-7.7); Eosinophil % 2.1 %; Nucleated Red Blood Cells % 0.1
[2022-03-20 05:46] LABS: Albumin 2.6 g/dL (3.2-5.2); Albumin/Globulin Ratio 1.6 (1-3); Calcium 7.8 mg/dL (8.6-10.3); Globulin 1.6 g/dL (2-4); Potassium 4.6 mmol/L (3.5-5.0); Total Bilirubin 0.5 mg/dL (0.2-1.0); Total Protein 4.2 g/dL (6.4-8.9); eGFR CKD-EPI 18.7 (>60)
[2022-03-20] MEDS: SPIRIVA Respimat (tiotropium) 2.5 mcg/inh Inhaler INH SCH (08:41)
[2022-03-20] MEDS: Labetalol 300 mg TAB PO SCH ×3 (10:52→22:28)
[2022-03-20] MEDS: NS 0.9% 1000 ml BAG 1,000 ML IV SCH (10:59)
[2022-03-20] MEDS ORDERED: Vancomycin 750 MG in NS 0.9% 250 ml 250 ML IVPB SCH (12:32)
[2022-03-20] MEDS ORDERED: Vancomycin per Pharmacy 1 EA NOTE FOLLOW UP PRN (12:47)
[2022-03-20] MEDS ORDERED: Cefepime ADVAN 1 GM in NS 0.9% 50 ML 50 ML IVPB SCH (13:00)
[2022-03-20] MEDS: [UNRECOGNIZED DRUG - OTHER] PO SCH ×2 (13:30→22:28)
[2022-03-20] MEDS ORDERED: Vancomycin 1,500 MG in NS 0.9% 250 ml 250 ML IVPB ONE (13:30)
[2022-03-20] MEDS: ISAVUCONAZONIUM SULFATE 186 MG PO SCH (13:31)
[2022-03-20] MEDS: Cefepime 1 GM in Dextrose 1 GM/50 ML BAG IV SCH (13:44)
[2022-03-20 17:06] LABS: Body Fluid WBC 304 /mcL
[2022-03-20 17:23] LABS: Total Protein 4.6 g/dL (6.4-8.9)
[2022-03-20 17:57] LABS: Body Fluid Mono 24 %; Body Fluid Source Pleural Fluid; Body Fluid Total Cells Counted 200
[2022-03-20 17:58] LABS: Body Fluid Appearance Cloudy; Body Fluid Color Amber
[2022-03-21] MEDS: Labetalol 300 mg TAB PO SCH ×3 (05:56→22:02)
[2022-03-21 07:50] LABS: Hematocrit 22 % (42-52); Hemoglobin 7.5 g/dL (14.0-18.0); Mean Corpuscular HGB Conc 34 g/dL (31-36); Mean Corpuscular Hemoglobin 33 pg (27-31); Mean Corpuscular Volume 95 fL (80-94); Mean Platelet Volume 6.5 fL (7.4-10.4); Platelet Count 99 10^3/uL (150-450); Red Blood Count 2.29 10^6 /uL (4.18-5.48); Red Cell Distribution Width 17 % (10-15)
[2022-03-21] MEDS: SPIRIVA Respimat (tiotropium) 2.5 mcg/inh Inhaler INH SCH (07:58)
[2022-03-21 08:15] LABS: ABS Lymphocytes 0.4 10^3/ul (1.0-4.8); ABS Monocytes 0.7 10^3/ul (0-0.8); ABS Neutrophils 2.8 10^3/ul (1.5-7.7); Eosinophil % 1.3 %; Lymphocyte % 9.7 %; Nucleated Red Blood Cells % 0.1
[2022-03-21] MEDS: [UNRECOGNIZED DRUG - OTHER] PO SCH ×2 (08:27→20:09)
[2022-03-21] MEDS: ISAVUCONAZONIUM SULFATE 186 MG PO SCH (08:29)
[2022-03-21 08:39] LABS: C Reactive Protein 104.63 mg/L (<8.01); Calcium 7.7 mg/dL (8.6-10.3); Potassium 4.7 mmol/L (3.5-5.0); eGFR CKD-EPI 20.3 (>60)
[2022-03-21 09:06] LABS: C Reactive Protein 97.56 mg/L (<8.01)
[2022-03-21] MEDS: methylPREDNISolone SOD SUCC 40 mg/ml 1 ml VIAL IV SCH (14:18)
[2022-03-21] MEDS: Cefepime 1 GM in Dextrose 1 GM/50 ML BAG IV SCH (14:18)
[2022-03-21] MEDS ORDERED: Vancomycin Random Level NOTE FOLLOW UP ONE (15:00)
[2022-03-21] MEDS ORDERED: Furosemide 20 mg/2 ml IV VIAL IV SLOW PU ONE (15:10)
[2022-03-21] MEDS ORDERED: Vancomycin 1000 MG in NS 0.9% 250 ML IVPB ONE (18:50)
[2022-03-22 06:03] LABS: Hematocrit 23 % (42-52); Mean Corpuscular HGB Conc 35 g/dL (31-36); Mean Corpuscular Hemoglobin 33 pg (27-31); Mean Corpuscular Volume 95 fL (80-94); Mean Platelet Volume 7.2 fL (7.4-10.4); Platelet Count 111 10^3/uL (150-450); Red Blood Count 2.45 10^6 /uL (4.18-5.48); Red Cell Distribution Width 17 % (10-15); White Blood Count 5.1 10^3/uL (3.5-10.8)
[2022-03-22 06:21] LABS: ABS Lymphocytes 0.3 10^3/ul (1.0-4.8); ABS Monocytes 0.5 10^3/ul (0-0.8); ABS Neutrophils 4.2 10^3/ul (1.5-7.7); Eosinophil % 0.1 %; Lymphocyte % 5.1 %
[2022-03-22 06:34] LABS: Calcium 8.4 mg/dL (8.6-10.3); Potassium 5.3 mmol/L (3.5-5.0); eGFR CKD-EPI 17.3 (>60)
[2022-03-22] MEDS: SPIRIVA Respimat (tiotropium) 2.5 mcg/inh Inhaler INH SCH (07:54)
[2022-03-22] MEDS: methylPREDNISolone SOD SUCC 40 mg/ml 1 ml VIAL IV SCH (07:59)
[2022-03-22] MEDS: [UNRECOGNIZED DRUG - OTHER] PO SCH ×2 (08:01→21:41)
[2022-03-22] MEDS: ISAVUCONAZONIUM SULFATE 186 MG PO SCH (08:02)
[2022-03-22] MEDS: Labetalol 300 mg TAB PO SCH ×3 (08:07→23:01)
[2022-03-22] MEDS ORDERED: SODIUM ZIRCONIUM CYCLOSILICATE 10 GM PACKET PO ONE ×3 (08:10→22:10)
[2022-03-22] MEDS ORDERED: Vancomycin Random Level NOTE FOLLOW UP ONE (13:00)
[2022-03-22 13:26] LABS: C Reactive Protein 111.09 mg/L (<8.01)
[2022-03-22 13:56] LABS: Calcium 8.8 mg/dL (8.6-10.3); Vancomycin Random 21.3 mcg/mL; eGFR CKD-EPI 17.3 (>60)
[2022-03-22 13:59] LABS: Potassium 5.8 mmol/L (3.5-5.0)
[2022-03-22] MEDS: Cefepime 1 GM in Dextrose 1 GM/50 ML BAG IV SCH (14:15)
[2022-03-22] MEDS ORDERED: NS 0.9% 1000 ml BAG 1,000 ML IV SCH (14:45)
[2022-03-22] MEDS ORDERED: NS 0.9% 500 ml BAG 500 ML IV ONE (15:32)
[2022-03-22] MEDS: Sodium Bicarb 650 mg (ANTACID) TAB PO SCH ×2 (16:58→21:40)
[2022-03-22 21:44] LABS: Calcium 8.5 mg/dL (8.6-10.3); eGFR CKD-EPI 17.9 (>60)
[2022-03-22 21:46] LABS: Potassium 5.2 mmol/L (3.5-5.0)
[2022-03-23] MEDS ORDERED: Vancomycin Random Level NOTE FOLLOW UP ONE (06:00)
[2022-03-23 06:02] LABS: Hematocrit 22 % (42-52); Hemoglobin 7.5 g/dL (14.0-18.0); Mean Corpuscular HGB Conc 34 g/dL (31-36); Mean Corpuscular Hemoglobin 32 pg (27-31); Mean Corpuscular Volume 95 fL (80-94); Mean Platelet Volume 7.1 fL (7.4-10.4); Platelet Count 120 10^3/uL (150-450); Red Blood Count 2.33 10^6 /uL (4.18-5.48); Red Cell Distribution Width 18 % (10-15)
[2022-03-23 06:26] LABS: ABS Lymphocytes 0.3 10^3/ul (1.0-4.8); ABS Monocytes 0.9 10^3/ul (0-0.8); ABS Neutrophils 3.7 10^3/ul (1.5-7.7); Eosinophil % 0.9 %; Lymphocyte % 6.8 %
[2022-03-23 06:50] LABS: C Reactive Protein 61.2 mg/L (<8.01); Calcium 8.3 mg/dL (8.6-10.3); Potassium 4.5 mmol/L (3.5-5.0); eGFR CKD-EPI 18.3 (>60)
[2022-03-23] MEDS: SPIRIVA Respimat (tiotropium) 2.5 mcg/inh Inhaler INH SCH (08:15)
[2022-03-23] MEDS: Sodium Bicarb 650 mg (ANTACID) TAB PO SCH (08:46)
[2022-03-23] MEDS: Labetalol 300 mg TAB PO SCH (08:48)
[2022-03-23] MEDS: methylPREDNISolone SOD SUCC 40 mg/ml 1 ml VIAL IV SCH (09:05)
[2022-03-23] MEDS: ISAVUCONAZONIUM SULFATE 186 MG PO SCH (09:06)
[2022-03-23] MEDS: [UNRECOGNIZED DRUG - OTHER] PO SCH (09:07)
[2022-03-23 13:06] VITALS: BP 115/69
[2022-03-23 13:28] LABS: Lactate Dehydrogenase, BF 154 U/L
[2022-03-24] MEDS ORDERED: Vancomycin Random Level NOTE FOLLOW UP ONE (06:00)
[2022-03-25 11:47] LABS: Fluid Type, Amylase PLEURAL
[2022-03-25 11:48] LABS: Glucose, BF 114 mg/dL
[2022-03-25 11:50] LABS: Fluid Type, Protein, Total PLEURAL
== END 2022-03-23 13:23 | disposition home or self-care (01) | DRG 139 ==
LOC: EDHOLD 03:32 → ED 03:32 → SUATTDRO 06:16 → MEDTELE 03-20 05:40
PROVIDERS: ADMIT Internal Medicine; ATTEND Internal Medicine

== ENCOUNTER 2022-09-14 10:49 | Observation (INO) ==
[2022-09-14] MEDS ORDERED: Lactated Ringers SEPSIS* BAG 2,400 ML IV ONE (11:15)
[2022-09-14 11:48] LABS: Hematocrit 19 % (42-52); Hemoglobin 6.3 g/dL (14.0-18.0); Mean Corpuscular HGB Conc 34 g/dL (31-36); Mean Corpuscular Hemoglobin 33 pg (27-31); Mean Corpuscular Volume 96 fL (80-94); Red Blood Count 1.93 10^6 /uL (4.18-5.48); Red Cell Distribution Width 16 % (10-15); White Blood Count 6.1 10^3/uL (3.5-10.8)
[2022-09-14 11:55] LABS: Activated Partial Thrombo Time 28.3 seconds (26.0-38.0); INR 1.34 (0.88-1.18)
[2022-09-14 12:11] LABS: High Sens Troponin Baseline 104 pg/mL (<20)
[2022-09-14 12:25] LABS: ALT 17 U/L (7-52); AST 17 U/L (13-39); Alkaline Phosphatase 54 U/L (35-149); Anion Gap 10 mmol/L (2-11); Blood Urea Nitrogen 55 mg/dL (6-24); C Reactive Protein 164.58 mg/L (<8.01); CO2 Carbon Dioxide 21 mmol/L (22-32); Calcium 7.2 mg/dL (8.6-10.3); Chloride 105 mmol/L (101-111); Globulin 1.5 g/dL (2-4); Glucose 113 mg/dL (70-100); Potassium 4.5 mmol/L (3.5-5.0); Sodium 136 mmol/L (135-145); Total Protein 4.5 g/dL (6.4-8.9); eGFR CKD-EPI 14.9 (>60)
[2022-09-14 12:45] LABS: Mean Platelet Volume 6.9 fL (7.4-10.4); Platelet Count 90 10^3/uL (150-450)
[2022-09-14 12:55] LABS: ABS Lymphocytes 0.3 10^3/ul (1.0-4.8); ABS Monocytes 0.7 10^3/ul (0-0.8); Anisocytosis 1+; Eosinophil % 0.5 %
[2022-09-14 13:07] LABS: High Sensitivity Troponin 1 Hr 79 pg/mL (<20)
[2022-09-14] MEDS ORDERED: Cefepime 2 GM in Dextrose 2 GM/50 ML BAG IV ONE (13:08)
[2022-09-14] MEDS ORDERED: Ondansetron ODT 4 mg TAB 4 MG TAB PO PRN (14:47)
[2022-09-14] MEDS ORDERED: ISAVUCONAZONIUM SULFATE 186 MG PO SCH (15:00)
[2022-09-14 16:50] LABS: Total Iron Binding Capacity 224 mcg/dL (250-450); Transferrin 160 mg/dL (203-362)
[2022-09-14 16:53] LABS: % Iron Saturation 9 % (15-55); Iron < 20 ug/dL (50-212); Unsaturated Iron Binding 204 ug/dL
[2022-09-14 17:10] LABS: Ferritin 1274.7 ng/mL (24-336)
[2022-09-14 17:17] LABS: Vitamin B12 365 pg/mL (180-914)
[2022-09-14 18:17] LABS: Hematocrit 23 % (42-52); Hemoglobin 7.6 g/dL (14.0-18.0)
[2022-09-14] MEDS: DOXYcycline 100 MG in NS 0.9% 250 ml 250 ML IVPB SCH (18:35)
[2022-09-14] MEDS ORDERED: Mometasone 220 MCG MDI INH SCH (19:00)
[2022-09-14] MEDS: [UNRECOGNIZED DRUG - OTHER] PO SCH (19:57)
[2022-09-14] MEDS: Sodium Bicarb 650 mg (ANTACID) TAB PO SCH (21:16)
[2022-09-14] MEDS: Heparin 5000 UNITS/ML 1 mL VIAL SUBCUT SCH (21:20)
[2022-09-14] MEDS ORDERED: Cefepime 2 GM in Dextrose 2 GM/50 ML BAG IV SCH (21:30)
[2022-09-15 00:25] LABS: Hematocrit 22 % (42-52); Hemoglobin 7.4 g/dL (14.0-18.0)
[2022-09-15] MEDS: Cefepime 1 GM in Dextrose 1 GM/50 ML BAG IV SCH ×2 (01:45→12:56)
[2022-09-15] MEDS: DOXYcycline 100 MG in NS 0.9% 250 ml 250 ML IVPB SCH (05:17)
[2022-09-15] MEDS: Heparin 5000 UNITS/ML 1 mL VIAL SUBCUT SCH (05:17)
[2022-09-15 05:34] LABS: ABS Lymphocytes 0.3 10^3/ul (1.0-4.8); ABS Neutrophils 6.7 10^3/ul (1.5-7.7); Eosinophil % 0.5 %; Hematocrit 21 % (42-52); Hemoglobin 7.3 g/dL (14.0-18.0); Lymphocyte % 3.7 %; Mean Corpuscular HGB Conc 34 g/dL (31-36); Mean Corpuscular Hemoglobin 32 pg (27-31); Mean Corpuscular Volume 94 fL (80-94); Mean Platelet Volume 7.4 fL (7.4-10.4); Platelet Count 82 10^3/uL (150-450); Red Blood Count 2.27 10^6 /uL (4.18-5.48); Red Cell Distribution Width 17 % (10-15)
[2022-09-15 06:05] LABS: Albumin 2.7 g/dL (3.2-5.2); Albumin/Globulin Ratio 1.9 (1-3); Calcium 6.9 mg/dL (8.6-10.3); Globulin 1.4 g/dL (2-4); Potassium 4.7 mmol/L (3.5-5.0); Total Bilirubin 0.5 mg/dL (0.2-1.0); Total Protein 4.1 g/dL (6.4-8.9)
[2022-09-15 07:57] LABS: Anisocytosis 1+
[2022-09-15] MEDS: Sodium Bicarb 650 mg (ANTACID) TAB PO SCH (08:46)
[2022-09-15] MEDS ORDERED: Cholecalciferol (VIT D3) 1,000 unit TAB PO SCH (09:00)
[2022-09-15] MEDS ORDERED: RUXOLITINIB 5 MG PO SCH (09:00)
[2022-09-15] MEDS: [UNRECOGNIZED DRUG - OTHER] PO SCH (09:21)
[2022-09-15] MEDS ORDERED: ISAVUCONAZONIUM SULFATE 186 MG PO SCH (11:00)
[2022-09-15 14:14] VITALS: BP 138/74
[2022-09-16 16:17] LABS: Adenovirus Undetected (Undetected); Bordetella parapertussis Undetected (Undetected); Bordetella pertussis Undetected (Undetected); Chlamydophila pneumoniae Undetected (Undetected); Coronavirus 229E Undetected (Undetected); Coronavirus HKU1 Undetected (Undetected); Coronavirus NL63 Undetected (Undetected); Coronavirus OC43 Undetected (Undetected); Human Metapneumovirus Undetected (Undetected); Human Rhinovirus/Enterovirus Detected (Undetected); Influenza A Undetected (Undetected); Influenza B Undetected (Undetected); Mycoplasmoides pneumoniae Undetected (Undetected); Parainfluenza Virus 1 Undetected (Undetected); Parainfluenza Virus 2 Undetected (Undetected); Parainfluenza Virus 3 Undetected (Undetected); Parainfluenza Virus 4 Undetected (Undetected); Respiratory Syncytial Virus Undetected (Undetected); Specimen Source NASOPHARYNGEAL SWAB
== END 2022-09-15 14:16 | disposition home or self-care (01) ==
LOC: ED 10:49 → EDHOLD 10:49 → SUATTDRO 14:14 → EDHOLD 09-15 14:14
PROVIDERS: ADMIT Internal Medicine; ATTEND Internal Medicine

== ENCOUNTER 2022-10-27 17:01 | Inpatient (IN) ==
[2022-10-27] MEDS ORDERED: metroNIDAZOLE IV 500 MG/100ML 500 MG/100 ML BAG IVPB ONE (19:30)
[2022-10-27] MEDS ORDERED: Cefepime 2 GM in Dextrose 2 GM/50 ML BAG IV ONE (19:34)
[2022-10-27 19:50] LABS: Hematocrit 23 % (42-52); Hemoglobin 7.6 g/dL (14.0-18.0); Mean Corpuscular HGB Conc 33 g/dL (31-36); Mean Corpuscular Hemoglobin 32 pg (27-31); Mean Corpuscular Volume 96 fL (80-94); Mean Platelet Volume 8.1 fL (7.4-10.4); Platelet Count 102 10^3/uL (150-450); Red Blood Count 2.39 10^6 /uL (4.18-5.48); Red Cell Distribution Width 18 % (10-15); White Blood Count 4.3 10^3/uL (3.5-10.8)
[2022-10-27 19:59] LABS: Activated Partial Thrombo Time 28.1 seconds (26.0-38.0); INR 1.16 (0.88-1.18)
[2022-10-27] MEDS ORDERED: Vancomycin 1,250 MG in NS 0.9% 250 ml 250 ML IVPB ONE (20:00)
[2022-10-27 20:28] LABS: Albumin 3.5 g/dL (3.2-5.2); Albumin/Globulin Ratio 2.5 (1-3); C Reactive Protein 57.03 mg/L (<8.01); Creatinine, Serum 3.72 mg/dL (0.67-1.17); Globulin 1.4 g/dL (2-4); Potassium 4.5 mmol/L (3.5-5.0); Total Bilirubin 0.5 mg/dL (0.2-1.0); Total Protein 4.9 g/dL (6.4-8.9); eGFR CKD-EPI 18.4 (>60)
[2022-10-27 20:29] LABS: Anisocytosis 1+; Polychromasia 1+
[2022-10-27 20:30] LABS: ABS Lymphocytes 0.1 10^3/ul (1.0-4.8); ABS Monocytes 0.6 10^3/ul (0-0.8); ABS Neutrophils 3.6 10^3/ul (1.5-7.7); Eosinophil % 0.4 %; Lymphocyte % 2.6 %; Nucleated Red Blood Cells % 0.2
[2022-10-27 21:09] LABS: Urine Appearance Cloudy; Urine Bilirubin Negative (Negative); Urine Blood 1+ (Negative); Urine Color Yellow; Urine Glucose Negative (Negative); Urine Ketones Negative (Negative); Urine Nitrite Negative (Negative); Urine Protein 2+(100 mg/dL) (Negative); Urine Specific Gravity 1.011 (1.002-1.030); Urine Urobilinogen Negative (Negative)
[2022-10-27 21:12] LABS: Urine Bacteria Absent (Absent); Urine Red Blood Cell Trace(0-2/hpf) (Absent); Urine Squamous Epithelial Cell Present (Absent); Urine White Blood Cell Trace(0-5/hpf) (Absent)
[2022-10-27 21:23] LABS: High Sensitivity Troponin 1 Hr 53 pg/mL (<20)
[2022-10-27] MEDS ORDERED: Cefepime 2 GM in Dextrose 2 GM/50 ML BAG IV SCH (23:00)
[2022-10-27] MEDS ORDERED: [UNRECOGNIZED DRUG - OTHER] PO SCH (23:15)
[2022-10-27] MEDS: Hydrocortisone INJ 100 MG/2ML 2 ML VIAL IV SCH (23:31)
[2022-10-27] MEDS: Mometasone 220 MCG MDI INH SCH (23:58)
[2022-10-28] MEDS: metroNIDAZOLE IV 500 MG/100ML 500 MG/100 ML BAG IVPB SCH ×2 (03:56→12:36)
[2022-10-28] MEDS ORDERED: Cefepime 2 GM in Dextrose 2 GM/50 ML BAG IV SCH (04:00)
[2022-10-28] MEDS: Labetalol 300 mg TAB PO SCH ×3 (05:29→20:35)
[2022-10-28 06:04] LABS: Red Blood Count 2.29 10^6 /uL (4.18-5.48)
[2022-10-28 06:11] LABS: Hematocrit 22 % (42-52); Hemoglobin 7.3 g/dL (14.0-18.0); Mean Corpuscular HGB Conc 33 g/dL (31-36); Mean Corpuscular Hemoglobin 32 pg (27-31); Mean Corpuscular Volume 97 fL (80-94); Mean Platelet Volume 8.1 fL (7.4-10.4); Platelet Count 86 10^3/uL (150-450); Red Cell Distribution Width 18 % (10-15); White Blood Count 6.9 10^3/uL (3.5-10.8)
[2022-10-28 06:14] LABS: Albumin 3.2 g/dL (3.2-5.2); Calcium 7.6 mg/dL (8.6-10.3); Total Bilirubin 0.6 mg/dL (0.2-1.0)
[2022-10-28 06:15] LABS: Potassium 5.2 mmol/L (3.5-5.0)
[2022-10-28 06:20] LABS: Albumin/Globulin Ratio 2.1 (1-3); Creatinine, Serum 3.5 mg/dL (0.67-1.17); Globulin 1.5 g/dL (2-4); Total Protein 4.7 g/dL (6.4-8.9); eGFR CKD-EPI 19.8 (>60)
[2022-10-28 06:59] LABS: Anisocytosis 1+; RBC Morphology Normal (Normal)
[2022-10-28 07:00] LABS: ABS Lymphocytes 0.1 10^3/ul (1.0-4.8); ABS Monocytes 0.6 10^3/ul (0-0.8); ABS Neutrophils 6.1 10^3/ul (1.5-7.7); Eosinophil % 0.1 %; Lymphocyte % 1.9 %; Nucleated Red Blood Cells % 0.1
[2022-10-28] MEDS: SPIRIVA Respimat (tiotropium) 2.5 mcg/inh Inhaler INH SCH ×2 (07:31→11:10)
[2022-10-28] MEDS: [UNRECOGNIZED DRUG - OTHER] PO SCH ×2 (08:08→09:12)
[2022-10-28] MEDS: PTO: Ruxolitinib (NF) 5 MG TABLET PO SCH ×2 (08:09→09:11)
[2022-10-28] MEDS: MAGNESIUM OXIDE AA CHELATE PO SCH ×2 (08:09→20:36)
[2022-10-28] MEDS: Sodium Bicarb 650 mg (ANTACID) TAB PO SCH ×3 (08:17→20:34)
[2022-10-28] MEDS: Cholecalciferol (VIT D3) 1,000 unit TAB PO SCH (08:18)
[2022-10-28] MEDS: Hydrocortisone INJ 100 MG/2ML 2 ML VIAL IV SCH ×3 (08:24→22:30)
[2022-10-28] MEDS ORDERED: ISAVUCONAZONIUM SULFATE 186 MG PO SCH (09:00)
[2022-10-28] MEDS ORDERED: ISAVUCONAZONIUM SULFATE 372 MG PO SCH (09:00)
[2022-10-28 11:05] LABS: Albumin 3.1 g/dL (3.2-5.2); Albumin/Globulin Ratio 2.4 (1-3); Calcium 7.6 mg/dL (8.6-10.3); Creatinine, Serum 3.6 mg/dL (0.67-1.17); Globulin 1.3 g/dL (2-4); Potassium 4.5 mmol/L (3.5-5.0); Total Bilirubin 0.7 mg/dL (0.2-1.0); Total Protein 4.4 g/dL (6.4-8.9); eGFR CKD-EPI 19.1 (>60)
[2022-10-28] MEDS: Mometasone 220 MCG MDI INH SCH (19:41)
[2022-10-28] MEDS: Cefepime 1 GM in Dextrose 1 GM/50 ML BAG IV SCH (19:44)
[2022-10-28] MEDS: Ruxolitinib (NF) 5 MG TABLET PO SCH (20:38)
[2022-10-29] MEDS: Labetalol 300 mg TAB PO SCH ×3 (05:43→22:18)
[2022-10-29] MEDS: Hydrocortisone INJ 100 MG/2ML 2 ML VIAL IV SCH ×2 (06:54→14:10)
[2022-10-29] MEDS: SPIRIVA Respimat (tiotropium) 2.5 mcg/inh Inhaler INH SCH (07:11)
[2022-10-29 07:18] LABS: Hematocrit 21 % (42-52); Hemoglobin 6.9 g/dL (14.0-18.0); Mean Corpuscular HGB Conc 34 g/dL (31-36); Mean Corpuscular Hemoglobin 32 pg (27-31); Mean Corpuscular Volume 96 fL (80-94); Mean Platelet Volume 8.4 fL (7.4-10.4); Platelet Count 74 10^3/uL (150-450); Red Blood Count 2.13 10^6 /uL (4.18-5.48); Red Cell Distribution Width 18 % (10-15); White Blood Count 5.6 10^3/uL (3.5-10.8)
[2022-10-29 07:26] LABS: Albumin 3.1 g/dL (3.2-5.2); Albumin/Globulin Ratio 2.4 (1-3); Calcium 7.7 mg/dL (8.6-10.3); Creatinine, Serum 3.63 mg/dL (0.67-1.17); Globulin 1.3 g/dL (2-4); Magnesium 2.2 mg/dL (1.9-2.7); Potassium 4.4 mmol/L (3.5-5.0); Total Bilirubin 0.5 mg/dL (0.2-1.0); Total Protein 4.4 g/dL (6.4-8.9); eGFR CKD-EPI 18.9 (>60)
[2022-10-29 08:34] LABS: ABS Lymphocytes 0.2 10^3/ul (1.0-4.8); ABS Monocytes 0.5 10^3/ul (0-0.8); ABS Neutrophils 4.9 10^3/ul (1.5-7.7); Eosinophil % 0.2 %; Lymphocyte % 2.8 %; Nucleated Red Blood Cells % 0.1
[2022-10-29] MEDS: Cholecalciferol (VIT D3) 1,000 unit TAB PO SCH (08:44)
[2022-10-29] MEDS: PTO: Ruxolitinib (NF) 5 MG TABLET PO SCH (08:45)
[2022-10-29] MEDS: Sodium Bicarb 650 mg (ANTACID) TAB PO SCH ×3 (08:45→20:13)
[2022-10-29] MEDS: [UNRECOGNIZED DRUG - OTHER] PO SCH (08:46)
[2022-10-29] MEDS: MAGNESIUM OXIDE AA CHELATE PO SCH ×2 (08:46→20:15)
[2022-10-29] MEDS: ISAVUCONAZONIUM SULFATE 186 MG PO SCH (09:00)
[2022-10-29] MEDS: Cefepime 1 GM in Dextrose 1 GM/50 ML BAG IV SCH ×2 (09:00→20:09)
[2022-10-29 17:18] LABS: Hematocrit 24 % (42-52); Hemoglobin 7.9 g/dL (14.0-18.0)
[2022-10-29] MEDS: Acetylcysteine INHALATION SOL 200 MG/ML NEB.SOLN 10 ML INH SCH (18:27)
[2022-10-29] MEDS: Mometasone 220 MCG MDI INH SCH (20:09)
[2022-10-29] MEDS: Ruxolitinib (NF) 5 MG TABLET PO SCH (20:15)
[2022-10-30] MEDS: Hydrocortisone INJ 100 MG/2ML 2 ML VIAL IV SCH ×3 (00:13→20:35)
[2022-10-30] MEDS: Acetylcysteine INHALATION SOL 200 MG/ML NEB.SOLN 10 ML INH SCH ×4 (00:32→18:34)
[2022-10-30] MEDS: Labetalol 300 mg TAB PO SCH ×3 (05:35→21:30)
[2022-10-30 06:24] LABS: Hematocrit 24 % (42-52); Hemoglobin 8.3 g/dL (14.0-18.0); Mean Corpuscular HGB Conc 35 g/dL (31-36); Mean Corpuscular Hemoglobin 33 pg (27-31); Mean Corpuscular Volume 94 fL (80-94); Mean Platelet Volume 8.3 fL (7.4-10.4); Platelet Count 81 10^3/uL (150-450); Red Blood Count 2.51 10^6 /uL (4.18-5.48); Red Cell Distribution Width 18 % (10-15); White Blood Count 5.6 10^3/uL (3.5-10.8)
[2022-10-30 06:40] LABS: Albumin 3.2 g/dL (3.2-5.2); Albumin/Globulin Ratio 2.5 (1-3); Calcium 7.5 mg/dL (8.6-10.3); Creatinine, Serum 3.57 mg/dL (0.67-1.17); Globulin 1.3 g/dL (2-4); Magnesium 2.1 mg/dL (1.9-2.7); Potassium 4.1 mmol/L (3.5-5.0); Total Bilirubin 0.6 mg/dL (0.2-1.0); Total Protein 4.5 g/dL (6.4-8.9); eGFR CKD-EPI 19.3 (>60)
[2022-10-30 07:06] LABS: ABS Lymphocytes 0.1 10^3/ul (1.0-4.8); ABS Monocytes 0.4 10^3/ul (0-0.8); Eosinophil % 0.4 %; Lymphocyte % 2.5 %; Nucleated Red Blood Cells % 0.1
[2022-10-30] MEDS: SPIRIVA Respimat (tiotropium) 2.5 mcg/inh Inhaler INH SCH (07:53)
[2022-10-30] MEDS: Cefepime 1 GM in Dextrose 1 GM/50 ML BAG IV SCH ×2 (08:40→20:35)
[2022-10-30] MEDS: Cholecalciferol (VIT D3) 1,000 unit TAB PO SCH (08:43)
[2022-10-30] MEDS: PTO: Ruxolitinib (NF) 5 MG TABLET PO SCH (08:43)
[2022-10-30] MEDS: Sodium Bicarb 650 mg (ANTACID) TAB PO SCH ×3 (08:44→20:37)
[2022-10-30] MEDS: ISAVUCONAZONIUM SULFATE 186 MG PO SCH (08:44)
[2022-10-30] MEDS: [UNRECOGNIZED DRUG - OTHER] PO SCH (08:44)
[2022-10-30] MEDS: MAGNESIUM OXIDE AA CHELATE PO SCH ×2 (08:45→21:29)
[2022-10-30] MEDS: Mometasone 220 MCG MDI INH SCH (19:55)
[2022-10-30] MEDS: Ruxolitinib (NF) 5 MG TABLET PO SCH (21:32)
[2022-10-31] MEDS: Acetylcysteine INHALATION SOL 200 MG/ML NEB.SOLN 10 ML INH SCH ×4 (00:36→19:11)
[2022-10-31] MEDS: Labetalol 300 mg TAB PO SCH ×3 (05:57→22:04)
[2022-10-31 07:00] LABS: Hematocrit 25 % (42-52); Hemoglobin 8.5 g/dL (14.0-18.0); Mean Corpuscular HGB Conc 34 g/dL (31-36); Mean Corpuscular Hemoglobin 32 pg (27-31); Mean Corpuscular Volume 95 fL (80-94); Mean Platelet Volume 8.3 fL (7.4-10.4); Platelet Count 90 10^3/uL (150-450); Red Blood Count 2.67 10^6 /uL (4.18-5.48); Red Cell Distribution Width 17 % (10-15); White Blood Count 4.9 10^3/uL (3.5-10.8)
[2022-10-31 07:07] LABS: Calcium 7.6 mg/dL (8.6-10.3); Creatinine, Serum 3.41 mg/dL (0.67-1.17); Potassium 3.7 mmol/L (3.5-5.0); eGFR CKD-EPI 20.4 (>60)
[2022-10-31 07:37] LABS: ABS Lymphocytes 0.2 10^3/ul (1.0-4.8); ABS Monocytes 0.6 10^3/ul (0-0.8); Eosinophil % 0.4 %; Lymphocyte % 5.1 %; Nucleated Red Blood Cells % 0.3
[2022-10-31] MEDS: SPIRIVA Respimat (tiotropium) 2.5 mcg/inh Inhaler INH SCH (07:46)
[2022-10-31] MEDS: Cholecalciferol (VIT D3) 1,000 unit TAB PO SCH (09:38)
[2022-10-31] MEDS: Cefepime 1 GM in Dextrose 1 GM/50 ML BAG IV SCH ×2 (09:38→21:52)
[2022-10-31] MEDS: Hydrocortisone INJ 100 MG/2ML 2 ML VIAL IV SCH ×2 (09:38→22:03)
[2022-10-31] MEDS: Sodium Bicarb 650 mg (ANTACID) TAB PO SCH ×3 (09:38→22:02)
[2022-10-31] MEDS: PTO: Ruxolitinib (NF) 5 MG TABLET PO SCH (09:40)
[2022-10-31] MEDS: [UNRECOGNIZED DRUG - OTHER] PO SCH (09:42)
[2022-10-31] MEDS: MAGNESIUM OXIDE AA CHELATE PO SCH ×2 (09:43→22:13)
[2022-10-31] MEDS ORDERED: Albuterol 2.5mg/3 ml (0.083%) NEB.SOLN INH PRN (09:43)
[2022-10-31] MEDS: ISAVUCONAZONIUM SULFATE 186 MG PO SCH (09:45)
[2022-10-31] MEDS ORDERED: Potassium Chlor 20 meq TAB.ER PO ONE (15:08)
[2022-10-31] MEDS ORDERED: Cefpodoxime 200 mg (NF) PO SCH (17:00)
[2022-10-31] MEDS: Mometasone 220 MCG MDI INH SCH (19:13)
[2022-10-31] MEDS: Ruxolitinib (NF) 5 MG TABLET PO SCH (22:21)
[2022-11-01] MEDS: Acetylcysteine INHALATION SOL 200 MG/ML NEB.SOLN 10 ML INH SCH ×2 (02:37→07:58)
[2022-11-01] MEDS: Labetalol 300 mg TAB PO SCH ×2 (06:25→12:23)
[2022-11-01 07:20] LABS: Hematocrit 25 % (42-52); Hemoglobin 8.4 g/dL (14.0-18.0); Mean Corpuscular HGB Conc 34 g/dL (31-36); Mean Corpuscular Hemoglobin 32 pg (27-31); Mean Corpuscular Volume 96 fL (80-94); Mean Platelet Volume 8.2 fL (7.4-10.4); Platelet Count 87 10^3/uL (150-450); Red Blood Count 2.61 10^6 /uL (4.18-5.48); Red Cell Distribution Width 17 % (10-15); White Blood Count 4.2 10^3/uL (3.5-10.8)
[2022-11-01 07:32] LABS: Calcium 7.5 mg/dL (8.6-10.3); Creatinine, Serum 3.34 mg/dL (0.67-1.17); Potassium 4.2 mmol/L (3.5-5.0); eGFR CKD-EPI 20.9 (>60)
[2022-11-01 07:33] LABS: ABS Lymphocytes 0.2 10^3/ul (1.0-4.8); ABS Monocytes 0.5 10^3/ul (0-0.8); ABS Neutrophils 3.4 10^3/ul (1.5-7.7); Eosinophil % 0.2 %; Lymphocyte % 5.4 %; Nucleated Red Blood Cells % 0.4
[2022-11-01] MEDS: SPIRIVA Respimat (tiotropium) 2.5 mcg/inh Inhaler INH SCH (07:53)
[2022-11-01] MEDS: Cefepime 1 GM in Dextrose 1 GM/50 ML BAG IV SCH (08:54)
[2022-11-01] MEDS: Cholecalciferol (VIT D3) 1,000 unit TAB PO SCH (08:58)
[2022-11-01] MEDS: Sodium Bicarb 650 mg (ANTACID) TAB PO SCH ×2 (08:58→12:23)
[2022-11-01] MEDS: MAGNESIUM OXIDE AA CHELATE PO SCH (08:59)
[2022-11-01] MEDS: PTO: Ruxolitinib (NF) 5 MG TABLET PO SCH (08:59)
[2022-11-01] MEDS: ISAVUCONAZONIUM SULFATE 186 MG PO SCH (09:00)
[2022-11-01] MEDS: [UNRECOGNIZED DRUG - OTHER] PO SCH (09:01)
[2022-11-01 11:29] VITALS: BP 146/70
[2022-11-01] MEDS ORDERED: Hydrocortisone INJ 100 MG/2ML 2 ML VIAL IV SCH (12:00)
== END 2022-11-01 14:15 | disposition home or self-care (01) | DRG 720 ==
LOC: ED 17:01 → MED 22:49 → SUATTDRO 22:49 → MED 23:15
PROVIDERS: ADMIT Internal Medicine; ATTEND Internal Medicine

== ENCOUNTER 2022-12-01 03:59 | Inpatient (IN) ==
[2022-12-01] MEDS ORDERED: NS 0.9% 1000 ml BAG 1,000 ML IV ONE (06:20)
[2022-12-01 07:02] LABS: Hematocrit 28 % (42-52); Hemoglobin 9.9 g/dL (14.0-18.0); Mean Corpuscular HGB Conc 35 g/dL (31-36); Mean Corpuscular Hemoglobin 33 pg (27-31); Mean Corpuscular Volume 95 fL (80-94); Mean Platelet Volume 7.1 fL (7.4-10.4); Platelet Count 147 10^3/uL (150-450); Red Cell Distribution Width 18 % (10-15); White Blood Count 5.8 10^3/uL (3.5-10.8)
[2022-12-01] MEDS ORDERED: Ondansetron 4 mg VIAL 2 MG/ML 2 ml VIAL IV ONE (07:05)
[2022-12-01] MEDS ORDERED: Morphine 4 MG/ML VIAL (1 ml) IV ONE (07:05)
[2022-12-01 07:39] LABS: ABS Lymphocytes 0.4 10^3/ul (1.0-4.8); ABS Monocytes 0.9 10^3/ul (0-0.8); ABS Neutrophils 4.5 10^3/ul (1.5-7.7); Eosinophil % 0.6 %; Lymphocyte % 6.9 %
[2022-12-01 08:07] LABS: Albumin 3.6 g/dL (3.2-5.2); Albumin/Globulin Ratio 2.3 (1-3); C Reactive Protein 1.38 mg/L (<8.01); Calcium 7.1 mg/dL (8.6-10.3); Creatinine, Serum 4.23 mg/dL (0.67-1.17); Globulin 1.6 g/dL (2-4); Magnesium 1.5 mg/dL (1.9-2.7); Potassium 3.3 mmol/L (3.5-5.0); Total Bilirubin 0.6 mg/dL (0.2-1.0); Total Protein 5.2 g/dL (6.4-8.9); eGFR CKD-EPI 15.7 (>60)
[2022-12-01] MEDS ORDERED: Ondansetron 4 mg VIAL 2 MG/ML 2 ml VIAL IV PRN ×2 (10:12→13:39)
[2022-12-01] MEDS ORDERED: Morphine 4 MG/ML VIAL (1 ml) IV PRN (10:12)
[2022-12-01] MEDS ORDERED: Lactated Ringers 1000 ml BAG 1,000 ML IV ONE (12:26)
[2022-12-01] MEDS ORDERED: Magnesium Sulfate IV 3 GM in NS 0.9% 100 ml BAG 100 ML IVPB ONE (12:35)
[2022-12-01] MEDS ORDERED: Piperacillin/Tazobac ADVAN 3.375 GM in NS 0.9% 100 ml BAG 100 ML IV ONE (13:33)
[2022-12-01] MEDS ORDERED: Zosyn per Pharmacy NOTE FOLLOW UP SCH (14:00)
[2022-12-01] MEDS: KCL 10 MEQ/50 ML IVPREMIX 10 MEQ/50 ML BAG IV SCH ×2 (17:10→22:03)
[2022-12-01] MEDS ORDERED: Enoxaparin 60 MG/0.6 ML SYR SUBCUT SCH ×2 (21:00)
[2022-12-01] MEDS ORDERED: ZOSYN 3.375 GM Q8H per EXTENDED INFUSION IV SCH (21:00)
[2022-12-01] MEDS ORDERED: Enoxaparin 80 MG/0.8 ML SYR SUBCUT SCH (21:00)
[2022-12-01] MEDS: Mometasone 220 MCG MDI INH SCH (21:37)
[2022-12-01] MEDS: ZOSYN 3.375 GM Q8H per EXTENDED INFUSION IV SCH (21:58)
[2022-12-01] MEDS: Sodium Bicarb 650 mg (ANTACID) TAB PO SCH (22:15)
[2022-12-01] MEDS: PTO: Ruxolitinib (NF) 5 MG TABLET PO SCH (22:19)
[2022-12-01] MEDS: Morphine 4 MG/ML VIAL (1 ml) IV PRN (23:58)
[2022-12-02] MEDS: Morphine 4 MG/ML VIAL (1 ml) IV PRN ×2 (05:20→10:05)
[2022-12-02] MEDS: ZOSYN 3.375 GM Q8H per EXTENDED INFUSION IV SCH (05:24)
[2022-12-02 05:52] LABS: Urine Appearance Clear; Urine Bilirubin Negative (Negative); Urine Blood 1+ (Negative); Urine Color Yellow; Urine Glucose 1+(50 mg/dL) (Negative); Urine Ketones Negative (Negative); Urine Nitrite Negative (Negative); Urine Protein 2+(100 mg/dL) (Negative); Urine Specific Gravity 1.011 (1.002-1.030); Urine Urobilinogen Negative (Negative)
[2022-12-02 05:55] LABS: Urine Bacteria Absent (Absent); Urine Red Blood Cell Trace(0-2/hpf) (Absent); Urine Squamous Epithelial Cell Present (Absent); Urine White Blood Cell Absent (Absent)
[2022-12-02 06:26] LABS: Hematocrit 27 % (42-52); Hemoglobin 9.2 g/dL (14.0-18.0); Mean Corpuscular HGB Conc 35 g/dL (31-36); Mean Corpuscular Hemoglobin 33 pg (27-31); Mean Corpuscular Volume 95 fL (80-94); Mean Platelet Volume 7.4 fL (7.4-10.4); Platelet Count 136 10^3/uL (150-450); Red Blood Count 2.79 10^6 /uL (4.18-5.48); Red Cell Distribution Width 17 % (10-15); White Blood Count 4.9 10^3/uL (3.5-10.8)
[2022-12-02 06:30] LABS: ABS Monocytes 0.1 10^3/ul (0-0.8); ABS Neutrophils 4.8 10^3/ul (1.5-7.7); Lymphocyte % 0.7 %; Nucleated Red Blood Cells % 0.1
[2022-12-02 06:39] LABS: Albumin 3.2 g/dL (3.2-5.2); Albumin/Globulin Ratio 2.1 (1-3); Calcium 6.7 mg/dL (8.6-10.3); Globulin 1.5 g/dL (2-4); Magnesium 2.2 mg/dL (1.9-2.7); Total Bilirubin 0.7 mg/dL (0.2-1.0); Total Protein 4.7 g/dL (6.4-8.9); eGFR CKD-EPI 16.8 (>60)
[2022-12-02] MEDS: SPIRIVA Respimat (tiotropium) 2.5 mcg/inh Inhaler INH SCH (08:15)
[2022-12-02] MEDS ORDERED: ISAVUCONAZONIUM SULFATE 186 MG PO SCH ×2 (09:00→21:00)
[2022-12-02] MEDS: Sodium Bicarb 650 mg (ANTACID) TAB PO SCH ×3 (10:06→21:01)
[2022-12-02] MEDS: TACROLIMUS PO SCH ×2 (10:07→21:05)
[2022-12-02] MEDS: [UNRECOGNIZED DRUG - OTHER] PO SCH ×3 (10:07→21:07)
[2022-12-02] MEDS: PTO: Ruxolitinib (NF) 5 MG TABLET PO SCH ×2 (11:33→21:02)
[2022-12-02] MEDS: ZOSYN 3.375 GM Q12H per EXTENDED INFUSION IV SCH (18:29)
[2022-12-02] MEDS: Mometasone 220 MCG MDI INH SCH (19:46)
[2022-12-03] MEDS: ZOSYN 3.375 GM Q12H per EXTENDED INFUSION IV SCH (05:24)
[2022-12-03 05:45] LABS: Hematocrit 23 % (42-52); Mean Corpuscular HGB Conc 35 g/dL (31-36); Mean Corpuscular Hemoglobin 33 pg (27-31); Mean Corpuscular Volume 95 fL (80-94); Mean Platelet Volume 7.2 fL (7.4-10.4); Platelet Count 102 10^3/uL (150-450); Red Blood Count 2.42 10^6 /uL (4.18-5.48); Red Cell Distribution Width 17 % (10-15)
[2022-12-03 06:21] LABS: Calcium 6.6 mg/dL (8.6-10.3); Creatinine, Serum 4.29 mg/dL (0.67-1.17); Magnesium 2.2 mg/dL (1.9-2.7); Potassium 3.9 mmol/L (3.5-5.0); eGFR CKD-EPI 15.5 (>60)
[2022-12-03 07:30] LABS: ABS Monocytes 0.3 10^3/ul (0-0.8); ABS Neutrophils 2.7 10^3/ul (1.5-7.7); Eosinophil % 1.1 %; Lymphocyte % 1.5 %
[2022-12-03] MEDS: Sodium Bicarb 650 mg (ANTACID) TAB PO SCH ×3 (08:23→21:22)
[2022-12-03 08:34] LABS: Ferritin 1346.5 ng/mL (24-336)
[2022-12-03] MEDS: PTO: Ruxolitinib (NF) 5 MG TABLET PO SCH ×2 (08:39→21:47)
[2022-12-03] MEDS: TACROLIMUS PO SCH ×2 (08:39→21:26)
[2022-12-03] MEDS: ISAVUCONAZONIUM SULFATE 186 MG PO SCH (08:45)
[2022-12-03 08:59] LABS: Corrected Retic Count 0.9 % (0.5-1.5); Hematocrit for Retic CNT 23 % (42-52); Immature Retic Fraction 0.58; RBC Retic Count 2.45 10^6/uL (4.18-5.48)
[2022-12-03] MEDS: SPIRIVA Respimat (tiotropium) 2.5 mcg/inh Inhaler INH SCH (09:35)
[2022-12-03] MEDS ORDERED: Midazolam 10 mg/10 ml VIAL 1 mg/ml 10 ml VIAL (10 mg) IV SLOW PU ONE (12:05)
[2022-12-03] MEDS ORDERED: Ondansetron 4 mg VIAL 2 MG/ML 2 ml VIAL IV ONE (12:05)
[2022-12-03] MEDS ORDERED: Lidocaine 2% JELLY 6 ML Topical TOPICAL ONE (12:05)
[2022-12-03] MEDS ORDERED: Lactated Ringers 1000 ml BAG 1,000 ML IV ONE (12:05)
[2022-12-03] MEDS ORDERED: fentaNYL 100 mcg/2 ml 50 MCG/ML VIAL IV SLOW PU ONE (12:05)
[2022-12-03] MEDS ORDERED: Naloxone 0.4 mg VIAL 0.4 mg/ml 1 ml VIAL IV PUSH PRN (12:05)
[2022-12-03] MEDS ORDERED: Flumazenil 0.5 mg/5 ml 0.1 MG/ML 5 ml VIAL IV PRN (12:05)
[2022-12-03] MEDS ORDERED: Midazolam 10 mg/10 ml VIAL 1 mg/ml 10 ml VIAL (10 mg) ONE (13:37)
[2022-12-03] MEDS ORDERED: fentaNYL 100 mcg/2 ml 50 MCG/ML VIAL ONE (13:37)
[2022-12-03 17:44] LABS: Tacrolimus 7.3 ng/mL
[2022-12-03] MEDS: Mometasone 220 MCG MDI INH SCH (20:07)
[2022-12-03] MEDS: [UNRECOGNIZED DRUG - OTHER] PO SCH (21:24)
[2022-12-04 06:16] LABS: Hematocrit 23 % (42-52); Hemoglobin 7.8 g/dL (14.0-18.0); Mean Corpuscular HGB Conc 35 g/dL (31-36); Mean Corpuscular Hemoglobin 33 pg (27-31); Mean Corpuscular Volume 94 fL (80-94); Mean Platelet Volume 7.3 fL (7.4-10.4); Platelet Count 105 10^3/uL (150-450); Red Blood Count 2.38 10^6 /uL (4.18-5.48); Red Cell Distribution Width 17 % (10-15); White Blood Count 2.4 10^3/uL (3.5-10.8)
[2022-12-04 06:17] LABS: ABS Lymphocytes 0.1 10^3/ul (1.0-4.8); ABS Monocytes 0.4 10^3/ul (0-0.8); ABS Neutrophils 1.8 10^3/ul (1.5-7.7); Eosinophil % 1.8 %; Lymphocyte % 4.1 %; Nucleated Red Blood Cells % 0.1
[2022-12-04 06:32] LABS: Anion Gap 7 mmol/L (2-11); Blood Urea Nitrogen 65 mg/dL (6-24); CO2 Carbon Dioxide 27 mmol/L (22-32); Chloride 104 mmol/L (101-111); Creatinine, Serum 4.25 mg/dL (0.67-1.17); Glucose 122 mg/dL (70-100); Sodium 138 mmol/L (135-145); eGFR CKD-EPI 15.7 (>60)
[2022-12-04 06:36] LABS: Calcium 6.3 mg/dL (8.6-10.3)
[2022-12-04] MEDS: SPIRIVA Respimat (tiotropium) 2.5 mcg/inh Inhaler INH SCH (07:51)
[2022-12-04] MEDS: Sodium Bicarb 650 mg (ANTACID) TAB PO SCH ×3 (09:12→21:01)
[2022-12-04] MEDS: ISAVUCONAZONIUM SULFATE 186 MG PO SCH (09:14)
[2022-12-04] MEDS: PTO: Ruxolitinib (NF) 5 MG TABLET PO SCH ×2 (09:17→21:03)
[2022-12-04] MEDS ORDERED: CALCIUM GLUCONATE 1GM/50ML NS 1 GM/50 ML BAG IV ONE (10:08)
[2022-12-04] MEDS: TACROLIMUS PO SCH (10:12)
[2022-12-04 10:56] LABS: Albumin 2.9 g/dL (3.2-5.2)
[2022-12-04 11:01] LABS: ALT 18 U/L (7-52); AST 14 U/L (13-39); Albumin/Globulin Ratio 2.2 (1-3); Alkaline Phosphatase 56 U/L (35-149); Globulin 1.3 g/dL (2-4); Phosphorus 4.2 mg/dL (2.5-5.0); Total Protein 4.2 g/dL (6.4-8.9)
[2022-12-04] MEDS ORDERED: Calcium Gluconate 3 GM in NS 0.9% 250 ml 250 ML IV ONE (11:39)
[2022-12-04 14:08] LABS: Urine Appearance Clear; Urine Bilirubin Negative (Negative); Urine Blood 1+ (Negative); Urine Color Yellow; Urine Glucose 1+(50 mg/dL) (Negative); Urine Ketones Negative (Negative); Urine Nitrite Negative (Negative); Urine Protein 2+(100 mg/dL) (Negative); Urine Specific Gravity 1.011 (1.002-1.030); Urine Urobilinogen Negative (Negative)
[2022-12-04 14:10] LABS: Urine Bacteria Absent (Absent); Urine Red Blood Cell Trace(0-2/hpf) (Absent); Urine Squamous Epithelial Cell Present (Absent); Urine White Blood Cell Trace(0-5/hpf) (Absent)
[2022-12-04 16:30] LABS: CMV DNA DETECT/QT, P Undetected IU/mL (Undetected)
[2022-12-04 17:25] LABS: Vitamin D Total 25(OH) 20.6 ng/mL (20-50)
[2022-12-04 19:40] LABS: Calcium (PTH Intact) 7.7 mg/dL (8.6-10.3)
[2022-12-04 20:01] LABS: Uric Acid 13.1 mg/dL (4.4-7.6)
[2022-12-04] MEDS: Mometasone 220 MCG MDI INH SCH (20:40)
[2022-12-04] MEDS: NON FORMULARY MED PO SCH (21:02)
[2022-12-04] MEDS: [UNRECOGNIZED DRUG - OTHER] PO SCH (21:04)
[2022-12-05] MEDS: SPIRIVA Respimat (tiotropium) 2.5 mcg/inh Inhaler INH SCH (07:29)
[2022-12-05] MEDS: Sodium Bicarb 650 mg (ANTACID) TAB PO SCH (08:11)
[2022-12-05] MEDS: ISAVUCONAZONIUM SULFATE 186 MG PO SCH (08:12)
[2022-12-05] MEDS: NON FORMULARY MED PO SCH (08:13)
[2022-12-05] MEDS: PTO: Ruxolitinib (NF) 5 MG TABLET PO SCH (08:14)
[2022-12-05 09:31] LABS: Calcium 7.7 mg/dL (8.6-10.3); Potassium 3.9 mmol/L (3.5-5.0)
[2022-12-05 09:36] LABS: Hematocrit 28 % (42-52); Hemoglobin 9.3 g/dL (14.0-18.0); Mean Corpuscular HGB Conc 34 g/dL (31-36); Mean Corpuscular Hemoglobin 32 pg (27-31); Mean Corpuscular Volume 96 fL (80-94); Red Blood Count 2.88 10^6 /uL (4.18-5.48); Red Cell Distribution Width 18 % (10-15); White Blood Count 4.1 10^3/uL (3.5-10.8)
[2022-12-05 09:37] LABS: Creatinine, Serum 4.52 mg/dL (0.67-1.17); eGFR CKD-EPI 14.5 (>60)
[2022-12-05 10:09] VITALS: BP 149/77
[2022-12-05 10:13] LABS: ABS Eosinophils 0.1 10^3/ul (0-0.6); ABS Lymphocytes 0.3 10^3/ul (1.0-4.8); ABS Monocytes 0.9 10^3/ul (0-0.8); ABS Neutrophils 2.8 10^3/ul (1.5-7.7); Eosinophil % 1.5 %; Lymphocyte % 7.8 %; Mean Platelet Volume 7.9 fL (7.4-10.4); Nucleated Red Blood Cells % 0.2; Platelet Count 123 10^3/uL (150-450)
== END 2022-12-05 13:20 | disposition home or self-care (01) | DRG 249 ==
LOC: EDHOLD 03:59 → ED 03:59 → SUATTDRO 13:04 → MED 21:16
PROVIDERS: ADMIT Internal Medicine; ATTEND Internal Medicine